=== PATIENT | female | born 1950 | race Caucasian/White ===

== ENCOUNTER → 2017-12-16 11:05 | Outpatient (CLI) | payer MEDICARE, OTHER, SELFPAY ==
[2017-12-16 12:11] LABS: Absolute Lymphocyte Count 1.93 X10^3/ul (0.83-4.51); Absolute Neutrophil Count 1.8 X10^3/uL (2.0-7.7); Basophil# 0.01 X10^3/uL; Basophil% 0.2 % (0-1); Eosinophil# 0.25 X10^3/uL; Eosinophils% 5.8 % (0-5); Hematocrit 39.7 % (37-47); Hemoglobin 13.6 g/dl (12.0-15.0); Lymphocyte # 1.93 X10^3/ul (4.0); Mean Corp Hgb Conc 34.3 g/gl (32-36); Mean Corpuscular Hgb 31.1 pg (27.0-32.0); Mean Corpuscular Volume 90.8 fL (81-99); Mean Platelet Vol. 9.8 fl (6.2-12.0); Platelet Count 194 K/mm3 (150-450); RBC Distribution Width SD 42.9 fl (35.1-43.9); Red Blood Count 4.37 M/mm3 (4.2-5.4); White Blood Count 4.3 K/mm3 (4.4-11.0)
[2017-12-16 12:12] LABS: POSITIVE COUNT NO; POSITIVE DIFFERENTIAL NO; POSITIVE MORPHOLOGY NO
[2017-12-16 12:47] LABS: ALB/GLOB Ratio 1.2 RATIO (0.9-2.4); AST(SGOT) 19 U/L (15-37); Alanine Aminotransfer ALT/SGPT 23 U/L (13-56); Albumin, Serum 4.1 g/dL (3.2-5.0); Alkaline Phosphatase 71 U/L (45-117); Anion Gap 6 (5-15); BUN 14 mg/dL (7-18); BUN/Creat Ratio 20.4 RATIO (10-20); Calcium,Total 8.9 mg/dL (8.5-10.1); Chloride 109 mmol/L (98-107); Cholesterol 197 mg/dL (200); Creatinine, Serum 0.69 mg/dL (0.55-1.02); EST Glomerular Filtration Rate 91 mL/min (>60); Est Glom Filt Rate - Afr Amer 110 mL/min (>60); Globulin 3.4 g/dL (2.2-4.2); Glucose 86 mg/dL (74-106); High Density Lipoprotein 68 mg/dL; Potassium 3.7 mmol/L (3.5-5.1); Protein, Total 7.5 g/dL (6.4-8.2); Sodium Level 142 mmol/L (136-145); Thyroid Stim Hormone (TSH) 1.57 uIU/mL (0.358-3.74); Triglycerides 83 mg/dL; Very Low Density Lipoprotein 17 mg/dL (5-40)
== END ==
PROVIDERS: Family Provider Family Medicine; PCP Family Medicine; Visit Provider Family Medicine
DX: Z00.00 Encounter for general adult medical examination without abnormal findings (principal)
CPT/HCPCS: 36415; 80053; 80061; 84443; 85025

== ENCOUNTER → 2018-08-18 07:11 | Outpatient (CLI) | payer MEDICARE, OTHER, SELFPAY ==
--- NOTE | 2018-08-18 07:19 | BI_ITS ---
MAMMOGRAPHY - BILATERAL SCREENING REASON FOR EXAM: Female, 67 years old. Routine annual screening examination. PERTINENT HISTORY: Non-contributory. TECHNIQUE: Digital bilateral breast addisno (3D mammographic acquisition) in the CC and MLO projections. 2-D mediolateral oblique (MLO) and craniocaudad (CC) views of both breasts were obtained. CAD: Full Field Digital Mammography with Computer Added Detection was performed. COMPARISON: Comparison is made with prior study dated June 08, 2017 and July 17, 2015. FINDINGS: Breast Composition: There are scattered areas of fibroglandular density. There are no dominant masses or suspicious calcifications. Stable small bilateral axillary lymph nodes. No other significant abnormalities are identified. There has been no significant change since the prior study. BI/SCREENING MAMM (CAD), BILAT IMPRESSION: Stable bilateral screening mammogram. Yearly follow-up mammogram recommended. (A) ASSESSMENT CATEGORY: BIRADS Category 2: Benign. A letter regarding these results will be sent to the patient by the facility within 30 days. Approximately 10% of breast cancers are not detected by mammography. A normal mammogram should not delay biopsy of a clinically suspicious abnormality. [id number] Electronically Signed: Anish Strickland MD at 9:21 EST Tel [phone], Service support ,
== END ==
PROVIDERS: Family Provider Family Medicine; PCP Family Medicine; Referring Provider Nurse Practitioner Women's Health; Visit Provider Nurse Practitioner Women's Health
DX: Z12.31 Encounter for screening mammogram for malignant neoplasm of breast (principal)
CPT/HCPCS: 77063; 77067

== ENCOUNTER → 2018-12-28 08:43 | Outpatient (CLI) | payer MEDICARE, OTHER, SELFPAY ==
[2018-08-22 09:22] VITALS: BMI 29.2
[2018-12-28 12:48] LABS: Absolute Lymphocyte Count 1.54 X10^3/ul (0.83-4.51); Absolute Neutrophil Count 1.5 X10^3/uL (2.0-7.7); Basophil# 0.01 X10^3/uL; Basophil% 0.3 % (0-1); Eosinophil# 0.27 X10^3/uL; Eosinophils% 7.6 % (0-5); Hematocrit 38.2 % (37-47); Hemoglobin 13.4 g/dl (12.0-15.0); Lymphocyte # 1.54 X10^3/ul (4.0); Lymphocyte % 43.5 % (19-41); Mean Corp Hgb Conc 35.1 g/gl (32-36); Mean Corpuscular Hgb 31.6 pg (27.0-32.0); Mean Corpuscular Volume 90.1 fL (81-99); Mean Platelet Vol. 10.3 fl (6.2-12.0); Monocyte# 0.23 X10^3/uL; Monocyte% 6.5 % (0-10); Neutrophil # 1.49 X10^3/uL (2.7-7.7); Neutrophil % 42.1 % (47-70); Platelet Count 209 K/mm3 (150-450); RBC Distribution Width CV 12.6 % (11.6-14.6); Red Blood Count 4.24 M/mm3 (4.2-5.4); White Blood Count 3.5 K/mm3 (4.4-11.0)
[2018-12-28 12:51] LABS: ALB/GLOB Ratio 1.5 RATIO (0.9-2.4); AST(SGOT) 20 U/L (15-37); Alanine Aminotransfer ALT/SGPT 26 U/L (13-56); Albumin, Serum 4.3 g/dL (3.2-5.0); Alkaline Phosphatase 68 U/L (45-117); Anion Gap 5 (5-15); BUN 11 mg/dL (7-18); BUN/Creat Ratio 14.4 RATIO (10-20); Calcium,Total 9.8 mg/dL (8.5-10.1); Chloride 108 mmol/L (98-107); Cholesterol 209 mg/dL (200); Creatinine, Serum 0.76 mg/dL (0.55-1.02); EST Glomerular Filtration Rate 80 mL/min (>60); Est Glom Filt Rate - Afr Amer 97 mL/min (>60); Globulin 2.9 g/dL (2.2-4.2); Glucose 92 mg/dL (74-106); High Density Lipoprotein 68 mg/dL; Protein, Total 7.2 g/dL (6.4-8.2); Sodium Level 139 mmol/L (136-145); Triglycerides 62 mg/dL; Very Low Density Lipoprotein 12 mg/dL (5-40)
[2018-12-28 13:03] LABS: POSITIVE COUNT NO; POSITIVE DIFFERENTIAL NO; POSITIVE MORPHOLOGY NO
== END ==
PROVIDERS: Family Provider Family Medicine; PCP Family Medicine; Visit Provider Family Medicine
DX: Z00.00 Encounter for general adult medical examination without abnormal findings (principal); F32.9 Major depressive disorder, single episode, unspecified; J45.909 Unspecified asthma, uncomplicated
CPT/HCPCS: 36415; 80053; 80061; 85025

== ENCOUNTER → 2019-03-29 16:01 | Outpatient (CLI) | payer MEDICARE, OTHER, SELFPAY ==
[2019-03-29 11:26] VITALS: BMI 29.2
== END ==
PROVIDERS: Family Provider Family Medicine; PCP Family Medicine; Referring Provider Nurse Practitioner Women's Health; Visit Provider Nurse Practitioner Women's Health
DX: N89.8 Other specified noninflammatory disorders of vagina (principal); Z11.3 Encounter for screening for infections with a predominantly sexual mode of transmission
CPT/HCPCS: 87070; 87077; 87106; 87205; 87491; 87591

== ENCOUNTER → 2019-04-02 11:38 | Outpatient (CLI) | payer MEDICARE, OTHER, SELFPAY ==
[2019-03-29 11:26] VITALS: BMI 29.2
[2019-04-02 14:07] LABS: Prolactin 6.5 ng/mL
== END ==
PROVIDERS: Family Provider Family Medicine; PCP Family Medicine; Referring Provider Nurse Practitioner Women's Health; Visit Provider Nurse Practitioner Women's Health
DX: N64.3 Galactorrhea not associated with childbirth (principal)
CPT/HCPCS: 36415; 84146

== ENCOUNTER → 2019-04-04 08:55 | Outpatient (CLI) | payer MEDICARE, OTHER, SELFPAY ==
[2019-03-29 10:57] VITALS: BMI 25.0
[2019-03-29 11:26] VITALS: BMI 29.2
--- NOTE | 2019-04-04 09:01 | US_ITS ---
STUDY: ULTRASOUND BREAST - LEFT REASON FOR EXAM: Female, 68 years old. Nipple discharge in the left breast. TECHNIQUE: Axial and longitudinal images of the LEFT breast were performed with a high resolution ultrasound transducer. COMPARISON: Comparison is made with prior mammogram done earlier in the day. FINDINGS: LEFT Breast: The retroareolar region of the breast was examined by ultrasound. No sonographic abnormality is seen. US/Breast Limited Unilateral IMPRESSION: No sonographic abnormality is seen. ASSESSMENT CATEGORY: BIRADS Category 1: Negative. A letter regarding these results will be sent to the patient by the facility within 30 days. Electronically Signed: Anish Strickland, at 10:44 EDT , Service support ,
--- NOTE | 2019-04-04 09:01 | BI_ITS ---
MAMMOGRAPHY - UNILATERAL DIAGNOSTIC: LEFT BREAST REASON FOR EXAM: Female, 68 years old. Inverted left nipple with left nipple discharge. PERTINENT HISTORY: Non-contributory. TECHNIQUE: Digital unilateral breast addison (3D mammographic acquisition) in the CC and MLO projections. 2-D mediolateral oblique (MLO) and craniocaudad (CC) views of both breasts were obtained. CAD: Full Field Digital Mammography with Computer Added Detection was performed. COMPARISON: Comparison is made with prior study dated August 18, 2018 and June 08, 2017. FINDINGS: Breast Composition: There are scattered areas of fibroglandular density. There are no dominant masses or suspicious calcifications. Stable appearance of the left nipple. No other significant abnormalities are identified. There has been no significant change since the prior study. BI/DIAG MAMM W/CAD, UNILAT IMPRESSION: Stable unilateral diagnostic mammogram. Correlation with ultrasound of the retroareolar region of the left breast is recommended. ASSESSMENT CATEGORY: BIRADS Category 0: Incomplete. Need additional imaging evaluation. A letter regarding these results will be sent to the patient by the facility within 30 days. Approximately 10% of breast cancers are not detected by mammography. A normal mammogram should not delay biopsy of a clinically suspicious abnormality. Electronically Signed: Anish Strickland, at 10:43 EDT , Service support ,
== END ==
PROVIDERS: Family Provider Family Medicine; PCP Family Medicine; Referring Provider Nurse Practitioner Women's Health; Visit Provider Nurse Practitioner Women's Health
DX: N64.3 Galactorrhea not associated with childbirth (principal); R92.8 Other abnormal and inconclusive findings on diagnostic imaging of breast
CPT/HCPCS: 76642; 77061; 77065; G0279

== ENCOUNTER → 2019-12-06 10:33 | Outpatient (CLI) | payer MEDICARE, OTHER, SELFPAY ==
[2019-03-29 11:26] VITALS: BMI 29.2
--- NOTE | 2019-12-06 10:35 | BI_ITS ---
MAMMOGRAPHY - BILATERAL SCREENING REASON FOR EXAM: Female, 69 years old. Routine annual screening examination. PERTINENT HISTORY: Non-contributory. TECHNIQUE: Digital bilateral breast yana (3D mammographic acquisition) in the CC and MLO projections. 2-D mediolateral oblique (MLO) and craniocaudad (CC) views of both breasts were obtained. CAD: Full Field Digital Mammography with Computer Added Detection was performed. COMPARISON: Comparison is made with prior study dated August 18, 2018 and April 04, 2019. FINDINGS: Breast Composition: There are scattered areas of fibroglandular density. There are no dominant masses or suspicious calcifications. Stable benign-appearing left axillary lymph nodes. No other significant abnormalities are identified. There has been no significant change since the prior study. BI/SCREEN MAMM (CAD) W/YANA BILAT IMPRESSION: Stable bilateral screening mammogram. Yearly follow-up mammogram recommended. (A) ASSESSMENT CATEGORY: BIRADS Category 2: Benign. A letter regarding these results will be sent to the patient by the facility within 30 days. Approximately 10% of breast cancers are not detected by mammography. A normal mammogram should not delay biopsy of a clinically suspicious abnormality. [id number] Electronically Signed: Anish Strickland, at 12:20 EDT , Service support ,
== END ==
PROVIDERS: PCP Family Medicine; Referring Provider Nurse Practitioner Women's Health; Visit Provider Nurse Practitioner Women's Health
DX: Z12.31 Encounter for screening mammogram for malignant neoplasm of breast (principal)
CPT/HCPCS: 77063; 77067

== ENCOUNTER → 2020-01-03 08:24 | Outpatient (CLI) | payer MEDICARE, OTHER, SELFPAY ==
[2019-03-29 11:26] VITALS: BMI 29.2
[2020-01-03 12:44] LABS: Absolute Lymphocyte Count 1.64 X10^3/uL (0.83-4.51); Absolute Neutrophil Count 1.2 X10^3/uL (2.0-7.7); Basophil# 0.02 X10^3/uL; Basophil% 0.6 % (0-1); Eosinophil# 0.22 X10^3/uL; Eosinophils% 6.6 % (0-5); Hematocrit 38.1 % (37-47); Hemoglobin 13.2 g/dL (12.0-15.0); Lymphocyte # 1.64 X10^3/ul (4.0); Mean Corp Hgb Conc 34.6 g/dL (32-36); Mean Corpuscular Hgb 32.2 pg (27.0-32.0); Mean Corpuscular Volume 92.9 fL (81-99); Mean Platelet Vol. 9.9 fl (6.2-12.0); Monocyte# 0.24 X10^3/uL; Monocyte% 7.2 % (0-10); NRBC Flagged by Analyzer 0 % (0-5); Neutrophil # 1.23 X10^3/uL (2.7-7.7); Neutrophil % 36.6 % (47-70); Platelet Count 199 K/mm3 (150-450); RBC Distribution Width CV 12.4 % (11.6-14.6); RBC Distribution Width SD 42.5 fl (35.1-43.9); White Blood Count 3.4 K/mm3 (4.4-11.0)
[2020-01-03 12:53] LABS: ALB/GLOB Ratio 1.4 RATIO (0.9-2.4); AST(SGOT) 27 U/L (15-37); Alanine Aminotransfer ALT/SGPT 29 U/L (13-56); Albumin, Serum 4.1 g/dL (3.2-5.0); Alkaline Phosphatase 64 U/L (45-117); Anion Gap 6 (5-15); BUN 13 mg/dL (7-18); BUN/Creat Ratio 19.8 RATIO (10-20); Calcium,Total 9.1 mg/dL (8.5-10.1); Chloride 110 mmol/L (98-107); Cholesterol 248 mg/dL (200); Creatinine, Serum 0.66 mg/dL (0.55-1.02); EST Glomerular Filtration Rate 95 mL/min (>60); Est Glom Filt Rate - Afr Amer 115 mL/min (>60); Globulin 2.9 g/dL (2.2-4.2); Glucose 88 mg/dL (74-106); High Density Lipoprotein 87 mg/dL; Potassium 3.8 mmol/L (3.5-5.1); Sodium Level 142 mmol/L (136-145); Triglycerides 57 mg/dL; Very Low Density Lipoprotein 11 mg/dL (5-40)
== END ==
PROVIDERS: PCP Family Medicine; Visit Provider Family Medicine
DX: Z00.00 Encounter for general adult medical examination without abnormal findings (principal); F32.9 Major depressive disorder, single episode, unspecified; J45.909 Unspecified asthma, uncomplicated; E78.5 Hyperlipidemia, unspecified
CPT/HCPCS: 36415; 80053; 80061; 85025

== ENCOUNTER → 2020-07-17 10:24 | Outpatient (CLI) | payer MEDICARE, OTHER, SELFPAY ==
[2020-03-12 10:01] VITALS: BMI 29.2
== END ==
PROVIDERS: PCP Family Medicine; Referring Provider Family Medicine; Visit Provider Family Medicine
DX: Z03.818 Encounter for observation for suspected exposure to other biological agents ruled out (principal); R51.9 Headache, unspecified; J02.9 Acute pharyngitis, unspecified
CPT/HCPCS: 87635; C9803; U0003

== ENCOUNTER → 2020-12-19 10:49 | Outpatient (CLI) | payer MEDICARE, OTHER, SELFPAY ==
[2020-03-12 10:01] VITALS: BMI 29.2
--- NOTE | 2020-12-19 10:52 | BI_ITS ---
MAMMOGRAPHY - BILATERAL SCREENING REASON FOR EXAM: Female, 70 years old. Routine annual screening examination. PERTINENT HISTORY: Non-contributory. History of chronic bilateral nipple inversion. TECHNIQUE: Digital bilateral breast yana (3D mammographic acquisition) in the CC and MLO projections. 2-D mediolateral oblique (MLO) and craniocaudad (CC) views of both breasts were obtained. CAD: Full Field Digital Mammography with Computer Added Detection was performed. COMPARISON: Comparison is made with prior study dated 12/06/2019 and 08/18/2018. FINDINGS: Breast Composition: There are scattered areas of fibroglandular density. There are no dominant masses or suspicious calcifications. Stable benign-appearing bilateral axillary lymph nodes. No other significant abnormalities are identified. There has been no significant change since the prior study. BI/SCRN MAMM (CAD)W/YANA BILAT IMPRESSION: Stable bilateral screening mammogram. Yearly follow-up mammogram recommended. (A) ASSESSMENT CATEGORY: BIRADS Category 2: Benign. A letter regarding these results will be sent to the patient by the facility within 30 days. Approximately 10% of breast cancers are not detected by mammography. A normal mammogram should not delay biopsy of a clinically suspicious abnormality. [id number] Electronically Signed: Anish Strickland MD at 12:20 EDT , Service support ,
== END ==
PROVIDERS: PCP Family Medicine; Referring Provider Nurse Practitioner Women's Health; Visit Provider Nurse Practitioner Women's Health
DX: Z12.31 Encounter for screening mammogram for malignant neoplasm of breast (principal)
CPT/HCPCS: 77063; 77067

== ENCOUNTER → 2021-04-07 13:54 | Outpatient (CLI) | payer MEDICARE, OTHER, SELFPAY ==
--- NOTE | 2021-04-07 13:56 | US_ITS ---
INDICATION: mass left pelvis - palpated on annual exam EXAMINATION: Ultrasound US Pelvis Non OB Complete With Transvaginal Imaging TECHNIQUE: Transabdominal and transvaginal pelvic ultrasound was performed. Grayscale, spectral waveform, and color flow Doppler evaluation of the adnexa. COMPARISON: None. FINDINGS: UTERUS: '' The uterus demonstrates unremarkable echogenicity unremarkable size shape and configuration for the patient''s age, no evidence of hypoechoic areas suggest masses. Uterus measures 6.7 x 3.9 x 2.6 cm. Cervix demonstrates unremarkable echogenicity, no evidence of cervical cysts is seen. Unremarkable endometrial stripe with no evidence of fluid or masses within the endometrial cavity, endometrial thickness measures 3.3 mm. RIGHT OVARY: The right ovary demonstrates unremarkable echogenicity and unremarkable vascularity, unremarkable size, shape and configuration, a well-circumscribed cyst is visualized within the in the right ovary measuring 2.0 x 1.3 x 1.3 cm, no evidence of internal septations is seen. The right ovary measures 2.8 x 2.5 x 1.6 cm. LEFT OVARY: The left ovary demonstrates unremarkable echogenicity and unremarkable vascularity, unremarkable size, shape and configuration with no evidence of masses, the left ovary measures 2.8 x 2.5 x 1.6 cm. FREE FLUID: None. US/Pelvic (Non ) IMPRESSION: Unremarkable uterus and left ovary. A 2 cm cyst is visualized in the left ovary that demonstrates no evidence of internal septations or soft tissue component. Electronically Signed: Christopher Pruett MD at 15:56 EDT Tel , Service support ,
--- NOTE | 2021-04-07 13:56 | US_ITS ---
INDICATION: mass left pelvis - palpated on annual exam EXAMINATION: Ultrasound US Pelvis Non OB Complete With Transvaginal Imaging TECHNIQUE: Transabdominal and transvaginal pelvic ultrasound was performed. Grayscale, spectral waveform, and color flow Doppler evaluation of the adnexa. COMPARISON: None. FINDINGS: UTERUS: '' The uterus demonstrates unremarkable echogenicity unremarkable size shape and configuration for the patient''s age, no evidence of hypoechoic areas suggest masses. Uterus measures 6.7 x 3.9 x 2.6 cm. Cervix demonstrates unremarkable echogenicity, no evidence of cervical cysts is seen. Unremarkable endometrial stripe with no evidence of fluid or masses within the endometrial cavity, endometrial thickness measures 3.3 mm. RIGHT OVARY: The right ovary demonstrates unremarkable echogenicity and unremarkable vascularity, unremarkable size, shape and configuration, a well-circumscribed cyst is visualized within the in the right ovary measuring 2.0 x 1.3 x 1.3 cm, no evidence of internal septations is seen. The right ovary measures 2.8 x 2.5 x 1.6 cm. LEFT OVARY: The left ovary demonstrates unremarkable echogenicity and unremarkable vascularity, unremarkable size, shape and configuration with no evidence of masses, the left ovary measures 2.8 x 2.5 x 1.6 cm. FREE FLUID: None. US/Transvaginal Non- IMPRESSION: Unremarkable uterus and left ovary. A 2 cm cyst is visualized in the left ovary that demonstrates no evidence of internal septations or soft tissue component. Electronically Signed: Christopher Pruett MD at 15:56 EDT Tel , Service support ,
== END ==
PROVIDERS: PCP Family Medicine; Referring Provider Nurse Practitioner Women's Health; Visit Provider Nurse Practitioner Women's Health
DX: N94.89 Other specified conditions associated with female genital organs and menstrual cycle (principal)
CPT/HCPCS: 76830; 76856

== ENCOUNTER → 2021-12-21 | Outpatient (CLI) | payer MEDICARE, OTHER, SELFPAY ==
--- NOTE | 2021-12-21 08:13 | BI_ITS ---
MAMMOGRAPHY - BILATERAL SCREENING REASON FOR EXAM: Female, 71 years old. Routine annual screening examination. PERTINENT HISTORY: Non-contributory. History of chronic bilateral nipple inversion. TECHNIQUE: Digital bilateral breast yana (3D mammographic acquisition) in the CC and MLO projections. 2-D mediolateral oblique (MLO) and craniocaudad (CC) views of both breasts were obtained. CAD: Full Field Digital Mammography with Computer Added Detection was performed. COMPARISON: Comparison is made with prior study dated 12/19/2020 and 12/06/2019. FINDINGS: Breast Composition: There are scattered areas of fibroglandular density. There are no dominant masses or suspicious calcifications. No other significant abnormalities are identified. There has been no significant change since the prior study. BI/SCRN MAMM (CAD)W/YANA BILAT IMPRESSION: Stable bilateral screening mammogram. Yearly follow-up mammogram recommended. (A) ASSESSMENT CATEGORY: BIRADS Category 1: Negative. A letter regarding these results will be sent to the patient by the facility within 30 days. Approximately 10% of breast cancers are not detected by mammography. A normal mammogram should not delay biopsy of a clinically suspicious abnormality. [id number] Electronically Signed: Anish Strickland MD at 9:00 EDT ,
== END | disposition home or self-care (01) ==
LOC: OPBI 08:11
PROVIDERS: PCP Family Medicine; Visit Provider Nurse Practitioner Women's Health
DX: Z12.31 Encounter for screening mammogram for malignant neoplasm of breast (principal)
CPT/HCPCS: 77063; 77067

== ENCOUNTER → 2022-02-19 | Outpatient (CLI) | payer MEDICARE, OTHER, SELFPAY ==
[2022-02-19 10:09] LABS: Absolute Lymphocyte Count 1.38 X10^3/uL (0.83-4.51); Absolute Neutrophil Count 2.2 X10^3/uL (2.0-7.7); Basophil# 0.02 X10^3/uL; Basophil% 0.5 % (0-1); Eosinophil# 0.11 X10^3/uL; Eosinophils% 2.7 % (0-5); Hematocrit 37.8 % (37-47); Hemoglobin 12.8 g/dL (12.0-15.0); Lymphocyte # 1.38 X10^3/ul (0.83-4.51); Lymphocyte % 34.2 % (19-41); Mean Corp Hgb Conc 33.9 g/dL (32-36); Mean Corpuscular Hgb 31.6 pg (27.0-32.0); Mean Corpuscular Volume 93.3 fL (81-99); Mean Platelet Vol. 9.4 fl (6.2-12.0); Monocyte# 0.29 X10^3/uL; Monocyte% 7.2 % (0-10); NRBC Flagged by Analyzer 0 % (0-5); Neutrophil # 2.23 X10^3/uL (2.7-7.7); Neutrophil % 55.2 % (47-70); Platelet Count 265 K/mm3 (150-450); RBC Distribution Width CV 12.1 % (11.6-14.6); RBC Distribution Width SD 41.7 fl (35.1-43.9); Red Blood Count 4.05 M/mm3 (4.2-5.4)
[2022-02-19 10:37] LABS: ALB/GLOB Ratio 1.3 RATIO (0.9-2.4); AST(SGOT) 26 U/L (15-37); Alanine Aminotransfer ALT/SGPT 28 U/L (13-56); Albumin, Serum 3.8 g/dL (3.2-5.0); Alkaline Phosphatase 63 U/L (45-117); Anion Gap 5 (5-15); BUN 12 mg/dL (7-18); BUN/Creat Ratio 16.5 RATIO (10-20); Chloride 108 mmol/L (98-107); Cholesterol 198 mg/dL (200); Creatinine, Serum 0.73 mg/dL (0.55-1.02); EST Glomerular Filtration Rate 83 mL/min (>60); Est Glom Filt Rate - Afr Amer 101 mL/min (>60); Glucose 90 mg/dL (74-106); High Density Lipoprotein 67 mg/dL; Protein, Total 6.8 g/dL (6.4-8.2); Sodium Level 142 mmol/L (136-145); Thyroid Stim Hormone (TSH) 1.26 uIU/mL (0.358-3.74); Triglycerides 64 mg/dL; Very Low Density Lipoprotein 13 mg/dL (5-40)
== END | disposition home or self-care (01) ==
LOC: MTLAB 09:12
PROVIDERS: PCP Family Medicine; Referring Provider Family Medicine; Visit Provider Family Medicine
DX: Z00.00 Encounter for general adult medical examination without abnormal findings (principal); F32.9 Major depressive disorder, single episode, unspecified; R53.83 Other fatigue; E78.5 Hyperlipidemia, unspecified
CPT/HCPCS: 36415; 80053; 80061; 84443; 85025

== ENCOUNTER → 2022-04-08 | Outpatient (CLI) | payer MEDICARE, OTHER, SELFPAY ==
--- NOTE | 2022-04-08 08:21 | BD_ITS ---
STUDY: DUAL ENERGY X-RAY ABSORPTIOMETRY / DXA REASON FOR EXAM: Female, 71 years old. Screening TECHNIQUE: Bone Mineral Density (BMD) measurements of lumbar spine and bilateral hips were obtained. COMPARISON: Comparison is made with prior study dated 06/08/2017. FINDINGS: Lumbar Spine (L1-L4): g/cm2 (1.092) / T-score (0.5) / Z-score (2.7) Findings are suggestive of normal bone density with a low fracture risk. Left Femur Total: g/cm2 (0.793) / T-score (-1.2) / Z-score (0.4) Left Femoral Neck: g/cm2 (0.683) / T-score (-1.5) / Z-score (0.4) Right Femur Total: g/cm2 (0.860) / T-score (-0.7) / Z-score (1.0) Right Femoral Neck: g/cm2 (0.760) / T-score (-0.8) / Z-score (1.1) The T-Scores on the most recent prior examination were: Lumbar Spine (L1-L4): There has been worsening of bone density since the previous examination. Left Femur Total: which represents a worsening of 3.4%. Right Femur Total: which represents a worsening of 1.9%. BD/Dexa Bone Density Study IMPRESSION: The patient is considered osteopenic as outlined below according to World Chavez Organization (WHO) criteria with a low fracture risk. There has been worsening of bone density since the previous examination. Reference Information: The T-score is the number of standard deviations above or below the standard which is normal for young adults at their peak bone mineral density. The World Health Organization (WHO) interprets the T-scores as follows: Above -1 Normal bone density Between -1 and -2.5 Osteopenia Equal to / or below -2.5 Osteoporosis As a practical clinical guideline, osteopenia may be graded as follows: Mild -1 through -1.5 Moderate -1.6 through -2.0 Severe -2.1 through -2.4 The Z-score is the number of standard deviations above or below age-matched controls. A Z-score of less than -1.5 would be considered abnormal. References: 1. NIH Osteoporosis and Related Bone Diseases www osteo.org 2. International Society for Clinical Densitometry www iscd.org 3. National Osteoporosis Foundation www nof.org Electronically Signed: Anish Strickland MD at 11:15 EDT ,
== END | disposition home or self-care (01) ==
LOC: OPBD 08:09
PROVIDERS: PCP Family Medicine; Visit Provider Nurse Practitioner Women's Health
DX: Z13.820 Encounter for screening for osteoporosis (principal); Z78.0 Asymptomatic menopausal state
CPT/HCPCS: 77080

== ENCOUNTER → 2022-12-22 | Outpatient (CLI) | payer MEDICARE, OTHER, SELFPAY ==
--- NOTE | 2022-12-22 08:09 | BI_ITS ---
MAMMOGRAPHY - BILATERAL SCREENING REASON FOR EXAM: Female, 72 years old. Routine annual screening examination. PERTINENT HISTORY: Non-contributory. Chronic bilateral nipple inversion. TECHNIQUE: Digital bilateral breast yana (3D mammographic acquisition) in the CC and MLO projections. 2-D mediolateral oblique (MLO) and craniocaudad (CC) views of both breasts were obtained. CAD: Full Field Digital Mammography with Computer Added Detection was performed. COMPARISON: Comparison is made with prior study December 21, 2021 and December 19, 2020. FINDINGS: Breast Composition: There are scattered areas of fibroglandular density. There are no dominant masses or suspicious calcifications. No other significant abnormalities are identified. There has been no significant change since the prior study. BI/SCRN MAMM (CAD)W/YANA BILAT IMPRESSION: Stable bilateral screening mammogram. Yearly follow-up mammogram recommended. (A) ASSESSMENT CATEGORY: BIRADS Category 1: Negative. A letter regarding these results will be sent to the patient by the facility within 30 days. Approximately 10% of breast cancers are not detected by mammography. A normal mammogram should not delay biopsy of a clinically suspicious abnormality. [id number] Electronically Signed: Anish Strickland MD at 10:03 EDT ,
== END | disposition home or self-care (01) ==
LOC: OPBI 08:05
PROVIDERS: PCP Family Medicine; Referring Provider Nurse Practitioner Women's Health; Visit Provider Nurse Practitioner Women's Health
DX: Z12.31 Encounter for screening mammogram for malignant neoplasm of breast (principal)
CPT/HCPCS: 77063; 77067

== ENCOUNTER → 2023-02-21 | Outpatient (CLI) | payer MEDICARE, OTHER, SELFPAY ==
[2023-02-21 12:08] LABS: Absolute Lymphocyte Count 1.62 X10^3/uL (0.83-4.51); Absolute Neutrophil Count 2.3 X10^3/uL (2.0-7.7); Basophil# 0.03 X10^3/uL; Basophil% 0.7 % (0-1); Eosinophil# 0.23 X10^3/uL; Eosinophils% 5.2 % (0-5); Hematocrit 41.9 % (37-47); Hemoglobin 14.3 g/dL (12.0-15.0); Lymphocyte # 1.62 X10^3/ul (0.83-4.51); Lymphocyte % 36.7 % (19-41); Mean Corp Hgb Conc 34.1 g/dL (32-36); Mean Corpuscular Hgb 32.1 pg (27.0-32.0); Mean Corpuscular Volume 93.9 fL (81-99); Mean Platelet Vol. 10.1 fl (6.2-12.0); Monocyte# 0.24 X10^3/uL; Monocyte% 5.4 % (0-10); NRBC Flagged by Analyzer 0 % (0-5); Neutrophil # 2.28 X10^3/uL (2.7-7.7); Neutrophil % 51.8 % (47-70); Platelet Count 205 K/mm3 (150-450); RBC Distribution Width CV 12.1 % (11.6-14.6); RBC Distribution Width SD 42.5 fl (35.1-43.9); Red Blood Count 4.46 M/mm3 (4.2-5.4); White Blood Count 4.4 K/mm3 (4.4-11.0)
[2023-02-21 12:34] LABS: ALB/GLOB Ratio 1.2 RATIO (0.9-2.4); AST(SGOT) 25 U/L (15-37); Alanine Aminotransfer ALT/SGPT 24 U/L (13-56); Albumin, Serum 4.1 g/dL (3.2-5.0); Alkaline Phosphatase 65 U/L (45-117); Anion Gap 7 (5-15); BUN 14 mg/dL (7-18); BUN/Creat Ratio 17.7 RATIO (10-20); Calcium,Total 9.5 mg/dL (8.5-10.1); Chloride 106 mmol/L (98-107); Cholesterol 240 mg/dL (200); Creatinine, Serum 0.79 mg/dL (0.55-1.02); EST Glomerular Filtration Rate 76 mL/min (>60); Est Glom Filt Rate - Afr Amer 92 mL/min (>60); Globulin 3.4 g/dL (2.2-4.2); Glucose 95 mg/dL (74-106); High Density Lipoprotein 81 mg/dL; Potassium 3.9 mmol/L (3.5-5.1); Protein, Total 7.5 g/dL (6.4-8.2); Sodium Level 138 mmol/L (136-145); Thyroid Stim Hormone (TSH) 1.98 uIU/mL (0.358-3.74); Triglycerides 84 mg/dL; Very Low Density Lipoprotein 17 mg/dL (5-40)
== END | disposition home or self-care (01) ==
LOC: MTLAB 09:27
PROVIDERS: PCP Family Medicine; Referring Provider Family Medicine; Visit Provider Family Medicine
DX: Z00.00 Encounter for general adult medical examination without abnormal findings (principal); F32.9 Major depressive disorder, single episode, unspecified; R53.83 Other fatigue; E78.5 Hyperlipidemia, unspecified
CPT/HCPCS: 36415; 80053; 80061; 84443; 85025

== ENCOUNTER → 2023-12-26 | Outpatient (CLI) | payer MEDICARE, OTHER, SELFPAY ==
--- NOTE | 2023-12-26 08:18 | BI_ITS ---
MAMMOGRAPHY - BILATERAL SCREENING 3-D TOMOSYNTHESIS REASON FOR EXAM: Female, 73 years old. Screening for breast cancer PERTINENT HISTORY: No significant family history. TECHNIQUE: 2-D mammograms and 3-D Tomosynthesis of the breast (s) were performed. CAD was performed. COMPARISON: 12/22/2022 FINDINGS: The breast composition is composed of scattered fibroglandular density. Scattered benign calcifications are seen. No dense spiculated masses or suspicious microcalcifications are identified. No architectural distortion is identified. There is no skin thickening or retraction. There has been no significant change since the prior study. BI/SCRN MAMM (CAD)W/YANA BILAT IMPRESSION: No mammographic signs of malignancy. Routine yearly mammograms recommended. ASSESSMENT CATEGORY: BIRADS Category 1: Negative. A letter regarding these results will be sent to the patient by the facility within 30 days. FOLLOW UP RECOMMENDATION: Yearly follow up mammogram recommended. (A) Approximately 10% of breast cancers are not detected by mammography. A normal mammogram should not delay biopsy of a clinically suspicious abnormality. Electronically Signed: Paolo Huggins MD at 14:11 EDT ,
== END | disposition home or self-care (01) ==
LOC: OPBI 08:18
PROVIDERS: PCP Family Medicine; Referring Provider Nurse Practitioner Women's Health; Visit Provider Nurse Practitioner Women's Health
DX: Z12.31 Encounter for screening mammogram for malignant neoplasm of breast (principal)
CPT/HCPCS: 77063; 77067

== ENCOUNTER → 2024-02-22 | Outpatient (CLI) | payer MEDICARE, OTHER, SELFPAY ==
[2024-02-22 12:32] LABS: Absolute Lymphocyte Count 1.75 X10^3/uL (0.83-4.51); Absolute Neutrophil Count 1.8 X10^3/uL (2.0-7.7); Basophil# 0.03 X10^3/uL; Basophil% 0.7 % (0-1); Eosinophil# 0.22 X10^3/uL; Eosinophils% 5.4 % (0-5); Hematocrit 40.3 % (37-47); Hemoglobin 13.7 g/dL (12.0-15.0); Lymphocyte # 1.75 X10^3/ul (0.83-4.51); Lymphocyte % 43.3 % (19-41); Mean Corpuscular Hgb 31.2 pg (27.0-32.0); Mean Corpuscular Volume 91.8 fL (81-99); Mean Platelet Vol. 9.7 fl (6.2-12.0); Monocyte# 0.27 X10^3/uL; Monocyte% 6.7 % (0-10); NRBC Flagged by Analyzer 0 % (0-5); Neutrophil # 1.77 X10^3/uL (2.7-7.7); Neutrophil % 43.9 % (47-70); Platelet Count 208 K/mm3 (150-450); RBC Distribution Width CV 12.5 % (11.6-14.6); RBC Distribution Width SD 42.1 fl (35.1-43.9); Red Blood Count 4.39 M/mm3 (4.2-5.4)
[2024-02-22 12:49] LABS: ALB/GLOB Ratio 1.2 RATIO (0.9-2.4); AST(SGOT) 24 U/L (15-37); Alanine Aminotransfer ALT/SGPT 28 U/L (13-56); Albumin, Serum 3.7 g/dL (3.2-5.0); Alkaline Phosphatase 66 U/L (45-117); Anion Gap 6 (5-15); BUN 16 mg/dL (7-18); BUN/Creat Ratio 20.2 RATIO (10-20); Calcium,Total 9.2 mg/dL (8.5-10.1); Chloride 108 mmol/L (98-107); Cholesterol 223 mg/dL (200); Creatinine, Serum 0.79 mg/dL (0.55-1.02); EST Glomerular Filtration Rate 75 mL/min (>60); Est Glom Filt Rate - Afr Amer 91 mL/min (>60); Globulin 3.2 g/dL (2.2-4.2); Glucose 101 mg/dL (74-106); High Density Lipoprotein 79 mg/dL; Protein, Total 6.9 g/dL (6.4-8.2); Sodium Level 141 mmol/L (136-145); Thyroid Stim Hormone (TSH) 1.83 uIU/mL (0.358-3.74); Triglycerides 89 mg/dL; Very Low Density Lipoprotein 18 mg/dL (5-40)
== END | disposition home or self-care (01) ==
LOC: BFHLAB 09:17
PROVIDERS: PCP Family Medicine; Referring Provider Family Medicine; Visit Provider Family Medicine
DX: Z00.00 Encounter for general adult medical examination without abnormal findings (principal); F32.9 Major depressive disorder, single episode, unspecified; R53.83 Other fatigue; E78.5 Hyperlipidemia, unspecified
CPT/HCPCS: 36415; 80053; 80061; 84443; 85025

== ENCOUNTER → 2024-06-01 | Outpatient (CLI) | payer MEDICARE, OTHER, SELFPAY ==
--- NOTE | 2024-06-01 09:11 | BD_ITS ---
STUDY: DUAL ENERGY X-RAY ABSORPTIOMETRY / DXA REASON FOR EXAM: Female, 73 years old. Screening for osteoporosis TECHNIQUE: Bone Mineral Density (BMD) measurements of lumbar spine and bilateral hips were obtained. COMPARISON: Comparison is made with prior study to April 08, 2022. FINDINGS: Lumbar Spine (L1-L4): g/cm2 (1.221) / T-score (1.6) / Z-score (4.0) Findings are suggestive of normal bone density with a low fracture risk. Left Femur Total: g/cm2 (0.800) / T-score (-1.2) / Z-score (0.6) Left Femoral Neck: g/cm2 (0.655) / T-score (-1.7) / Z-score (0.3) Right Femur Total: g/cm2 (0.833) / T-score (-0.9) / Z-score (0.9) Right Femoral Neck: g/cm2 (0.732) / T-score (-1.1) / Z-score (1.0) The T-Scores on the most recent prior examination were: Lumbar Spine (L1-L4): There has been worsening of bone density since the previous examination. Left Femur Total: which represents an improvement of 0.8%. Right Femur Total: which represents a worsening of 3.1%. BD/Dexa Bone Density Study IMPRESSION: The patient is considered osteopenic as outlined below according to World Chavez Organization (WHO) criteria with a moderate fracture risk. There has been worsening of bone density since the previous examination. Reference Information: The T-score is the number of standard deviations above or below the standard which is normal for young adults at their peak bone mineral density. The World Health Organization (WHO) interprets the T-scores as follows: Above -1 Normal bone density Between -1 and -2.5 Osteopenia Equal to / or below -2.5 Osteoporosis As a practical clinical guideline, osteopenia may be graded as follows: Mild -1 through -1.5 Moderate -1.6 through -2.0 Severe -2.1 through -2.4 The Z-score is the number of standard deviations above or below age-matched controls. A Z-score of less than -1.5 would be considered abnormal. References: 1. NIH Osteoporosis and Related Bone Diseases www osteo.org 2. International Society for Clinical Densitometry www iscd.org 3. National Osteoporosis Foundation www nof.org Electronically Signed: Anish Strickland MD at 9:49 EDT ,
--- OUTSIDE RECORDS SUMMARY | 2024-06-01 09:38 | XMS RPT_ITS | CCD ---
Author Organization [facility] Care Team Providers Care Controller Operations And Hr Manager Name Role Phone Isabel Preston NP Unavailable [phone] IASBEL PRESTON (SENIOR CLIENT ADVISOR) Unavailable Unavailable TINY Hickman RN, Jade Campoverde Unavailable Unavailabl e Medications Completed/Discontinued Medications Medication Drug Class(es) Dates Sig (Normalized) Sig (Original) Drug Treatment Unknown - unknown (4 sources) No information available. Problems Active Problems Problem Classification Problem Date Documented Da te Episodic/Chronic Unclassified (2 sources) Specialized medical examination ; Translations: [Encounter for screening, unspecified] Onset: 04-13-2017 04-13-2017 Unclassified (1 source) Screening mammography ; Translations: [Encounter for screening mammogram for malignant neoplasm of breast] Onset: 05-31-2017 05-31-2017 Unclassified (1 source) Unknown / UNK(Unknown) Onset: 01-25-2017 Past or Other Problems Problem Classification Problem Date Documented Da te Episodic/Chronic Malaise and fatigue (4 sources) Fatigue; Translations: [Other fatigue] Onset: 04-13-2017 04-13-2017 Episodic Residual codes; unclassified (2 sources) Asymptomatic menopausal state; Translations: [Asymptomatic menopausal state] Onset: 06-02-2017 06-02-2017 Episodic Results Test Name Value Interpretation Reference Range Facil ity Lab Report: CBC W/Diff, Auto matedon 06-08-2017 Absolute Neut 1.9 X10 3/UL Low 2.0-7.7 [facility] Basophils/100 WBC Auto (Bld) 0.4 % Invalid Interpretation Code 0-1 [facility] Eosinophils/100 leukocytes 5.2 % High 0-5 [facility] Erythrocyte distribution width Auto Ratio (RBC) 12.7 % Invalid Interpretation Code 11.6-14.6 [facility] Erythrocytes (RBC) 4.46 10*6/uL Invalid Interpretation Code 4.2-5.4 [facility] Hematocrit (HCT) 40.6 % Invalid Interpretation Code 37-47 [facility] Hemoglobin mass conc (Bld) 14.2 g/dL Invalid Interpretation Code 12.0-15.0 [facility] Immature granulocytes/100 WBC (Bld) 0.000 % Invalid Interpretation Code 0.0-0.9 [facility] Lymphocytes 2.31 X10 3/UL Invalid Interpretation Code 0.83-4.51 [facility] Lymphocytes/100 leukocytes 48.4 % High 19-41 [facility] MCH 31.8 pg Invalid Interpretation Code 27.0-32.0 [facility] MCHC mass conc (RBC) 35.0 G/GL Invalid Interpretation Code 32-36 [facility] MCV 91.0 fL Invalid Interpretation Code 81-99 [facility] Monocytes/100 leukocytes 5.7 % Invalid Interpretation Code 0-10 [facility] Neutrophils/100 WBC Auto (Bld) 40.3 % Low 47-70 [facility] Platelets 223 10*3/mm3 Invalid Interpretation Code 150-450 [facility] PMV by Martin 10.2 fL Invalid Interpretation Code 6.2-12.0 [facility] RDW SD 41.8 fL Invalid Interpretation Code 35.1-43.9 [facility] WBC (Leukocytes) 4.8 10*3/uL Invalid Interpretation Code 4.4-11.0 [facility] Lab Report: Glucoseon 2016 Glucose mass conc 92 mg/dL Invalid Interpretation Code 70-110 [facility] Lab Report: Lipid Profileon 06-08-2017 Cholesterol 252 mg/dL High 200 [facility] HDL Cholesterol 73 mg/dL Invalid Interpretation Code [facility] LDL Cholesterol 164 mg/dL High 0-130 [facility] Triglyceride 77 mg/dL Invalid Interpretation Code [facility] very low density lipoproteins 15 mg/dL Invalid Interpretation Code 5-40 [facility] Lab Report: Thyroid Stim Hor noris (TSH)on 06-08-2017 Thyroid stimulating hormone (TSH) 1.62 u[iU]/mL Invalid Interpretation Code 0.358-3.74 [facility] Encounters Encounter Date Encounter Type Care Provider Facility Start: 01-25-2017 End: 01-26-2017 Ambulatory ISABEL (AXEL) MOHAN [facility] Procedures Date Procedure Procedure Detail Performing Clinician Start: 05-31-2017 Screening mammography Mammogra m yearly screening Isabel Preston SENIOR CLIENT ADVISOR Start: 04-13-2017 End: 06-08-2017 *CBC with Differential Isabel Preston SENIOR CLIENT ADVISOR Work Phone: Start: 04-13-2017 End: 06-08-2017 Glucose [Mass/volume] in Serum or Plasma Isabel Preston SENIOR CLIENT ADVISOR Work Phone: Start: 04-13-2017 End: 06-08-2017 Lipid 1996 panel - Serum or Plasma Isabel Preston SENIOR CLIENT ADVISOR Work Phone: Start: 04-13-2017 Specialized medical examination Health screening Isabel Preston SENIOR CLIENT ADVISOR Start: 04-13-2017 End: 06-08-2017 Thyrotropin [Units/volume] in Serum or Plasma Isabel Preston SENIOR CLIENT ADVISOR Work Phone: Plan of Treatment Date Care Activity Detail Author Start: 06-02-2017 End: 06-02-2017 Dxa bone density study 1/> sites axial skel Dual-energy X-ray absorptiometry (DXA), bone density study, 1 or more sites; [facility] Work Phone: Start: 05-31-2017 End: 05-31-2017 Mammogram, screening Mammogram, Screening, both breasts [facility] Start: 04-13-2017 End: 06-08-2017 *CBC with Differential *CBC with Differential [facility] Start: 04-13-2017 End: 06-08-2017 Glucose mass conc *Glucose, Fasting [facility] Start: 04-13-2017 End: 06-08-2017 Lipid panel [AGGREGATE] *Lipid Profile [facility] Start: 04-13-2017 End: 06-08-2017 Thyroid stimulating hormone (TSH) *TSH [facility] Start: 04-13-2017 End: 04-13-2017 *CBC with Differential *CBC with Differential [facility] Start: 04-13-2017 End: 04-13-2017 Glucose *Glucose, Fasting [facility] Start: 04-13-2017 End: 04-13-2017 Lipid panel [AGGREGATE] *Lipid Profile [facility] Start: 04-13-2017 End: 04-13-2017 Thyroid stimulating hormone (TSH) *TSH [facility] Summary Purpose Family History No Family History Records Found Advance Directives No Advanced Directives Records Found Additional Source Comments INFORMATION SOURCE (unrecogn ized section and content) DATE CREATED AUTHOR 02/01/2018 [facility] FOR RECORDS PERTAINING TO PATIENTS WHO ARE OR HAVE BEEN ENROLLED IN A CHEMICAL DEPENDENCY/SUBSTANCEABUSE PROGRAM, SOME INFORMATION MAY BE OMITTED. This clinical summary was aggregated from multiple sources. Caution should be exercised in using it in the provision of clinical care. This summary normalizes information from multiple sources, and as a consequence, information in this document may materially change the coding, format and clinical context of patient data. In addition, data may be omitted in some cases. CLINICAL DECISIONS SHOULD BE BASED ON THE PRIMARY CLINICAL RECORDS. [employer] provides no warranty or guarantee of the accuracy or completeness of information in this document.
== END | disposition home or self-care (01) ==
LOC: OPBD 09:11
PROVIDERS: PCP Family Medicine; Referring Provider Nurse Practitioner Women's Health; Visit Provider Nurse Practitioner Women's Health
DX: M81.0 Age-related osteoporosis without current pathological fracture (principal)
CPT/HCPCS: 77080

== ENCOUNTER → 2025-01-10 | Outpatient (CLI) | payer MEDICARE, OTHER, SELFPAY ==
--- OUTSIDE RECORDS SUMMARY | 2025-01-10 07:45 | XMS RPT_ITS | CCD ---
Author Organization [facility] Care Team Providers Care [employer] Furnace Laborer Name Role Phone Latesha Preston NP S Unavailable LATESHA PRESTON (TRUST VAULT CLERK) Unavailable Unavailable TINY Hickman RN, Jade Campoverde Unavailable Unavailcarolina e Dr. Lizzeth Resendez Primary Care Provider Dr. Lizzeth Resendez Referring Provider Mohan REYNA, FAUSTINA Hall Attending Provider [phone] Dr. Lizzeth Resendez MD Primary Care Provider Dr. Lizzeth Resendez MD Referring Provider Perfecto Gillette Attending Provider Latesha Preston NP Referring Unavailable Latesha Preston NP Attending Unavailable Lizzeth Resendez Primary Care Unavailable Lizzeth Resendez Referring Unavailable Lizzeth Resendez Attending Unavailable Lizzeth Resendez Primary Care Unavailable Lizzeth Resendez Primary Care Unavailable Latesha Preston NP Attending Unavailable Latesha Preston NP Referring Unavailable Lizzeth Resendez Referring Unavailable Mohan TRUST VAULT CLERKLatesha Attending Unavailable Lizzeth Resendez Primary Care Unavailable Lizzeth Resendez Primary Care Unavailable Huang Resendeznah Referring Unavailable Perfecto Gillette Attending Unavailable Medications Current Medications Medication Drug Class(es) Dates Sig (Normalized) Sig (Original) Albuterol Sulfate (5 sources) beta2-Adrenergic Agonist Start: 02-03-2015 Albuterol Sulfate Active 2 PUFF INHALATION EVERY 4 HOURS NEEDED 1 February 03, 2015 11:28pm 2puffs every 2-4 hours for the next 3 days then as needed every 2-4 hours. Start: 02-03-2015 Albuterol Sulf ate 1 INHALER inhaler Active 2 NMA INHALATION EVERY 4 HOURS NEEDED February 03, 2015 12:00am 2puffs every 2-4 hours for the next 3 days then as needed every 2-4 hours. Start: 02-03-2015 Albuterol Sulf ate Active 2 PUFF INHALATION EVERY 4 HOURS NEEDED February 03, 2015 12:00am 2puffs every 2-4 hours for the next 3 days then as needed every 2-4 hours. amoxicillin 875 mg / clavulanate 125 mg oral tablet (1 source) Penicillin-class Antibacterial Start: 01-01-2025 Amoxicillin-Pot Clavulanate 875-125 mg tablet Active 1 {tbl} PO TWICE A DAY January 01, 2025 12:00am calcium carbonate 1500 mg oral tablet (5 sources) Start: 08-22-2018 take 1 tablet by mouth twice daily Calcium Carbonate (Calcium 600) 600 mg calcium (1,500 mg) tablet Active 600 mg PO TWICE A DAY August 22, 2018 1:00am cholecalciferol 0.05 mg oral capsule (5 sources) Vitamin D Start: 08-22-2018 take 1 capsule by mouth once daily Cholecalciferol (Vitamin D3) 2,000 unit capsule Active 2000 U PO DAILY August 22, 2018 1:00am escitalopram 20 mg oral tablet (7 sources) Serotonin Reuptake Inhibitor Start: 05-25-2023 End: 04-10-2024 take 1 tablet by mouth once daily Escitalopram Oxalate (Lexapro) 20 mg tablet Active 20 mg PO DAILY April 10, 2024 9:12am Start: 08-22-2018 End: 05-25-2023 take 1 tablet by mouth once daily Escitalopram Oxalate (Lexapro) 10 mg tablet Discontinued 10 mg PO DAILY August 22, 2018 1:00am May 25, 2023 12:06pm methylPREDNISolone 4 mg oral tablet (1 source) Corticosteroid Start: 01-01-2025 take 1 tablet by mouth once Methylprednisolone (Medrol (Tejinder)) 4 mg tablets,dose pack Active 0 PO per package directions January 01, 2025 12:00am PO PER PKG DIR Multivitamin preparation (4 sources) Start: 03-12-2020 take 1 tablet by mouth once daily Multivitamin Active 1 TABLET PO DAILY March 12, 2020 9:50am Start: 03-12-2020 take 1 tablet by kiel th once daily Multivitamin Active 1 TABLET PO DAILY March 12, 2020 12:00am Multivitamin tablet (1 source) Start: 03-12-2020 Multivitamin tablet Active 1 {tbl} PO DAILY March 12, 2020 12:00am tobramycin 3 mg/ml ophthalmic solution (1 source) Aminoglycoside Antibacterial Start: 01-01-2025 Tobramycin 0.3 % drops Active 1 NMA OPHTHALMIC Q2H January 01, 2025 12:00am to affected eye while awake first 24 hours, then 3x/day on days 2-5 zinc sulfate 66 mg oral tablet (3 sources) Start: 04-05-2022 take 1 tablet by mouth once daily Zinc Sulfate (Zinc-15) 66 mg tablet Active 66 mg PO DAILY April 05, 2022 12:00am Completed/Discontinued Medications Medication Drug Class(es) Dates Sig (Normalized) Sig (Original) Drug Treatment Unknown - unknown (4 sources) No information available. predniSONE 20 mg oral tablet (5 sources) Start: 02-03-2015 End: 08-22-2018 take 2 tablets by mouth once daily Prednisone 20 MG tablet Discontinued 40 mg PO DAILY February 03, 2015 12:00am August 22, 2018 10:13am Start: 02-03-2015 End: 08-22-2018 take 40 mg by mouth once daily Prednisone Discontinued 40 MG PO DAILY February 03, 2015 12:00am August 22, 2018 10:13am Problems Active Problems Problem Classification Problem Date Documented Da te Episodic/Chronic E Codes: Fall (1 source) Fall; Translations: [Unspecified fall, initial encounter] 09-07-2022 Episodic Fracture of upper limb (2 sources) Fracture of phalanx of thumb; Translations: [Fracture of unspecified phalanx of right thumb, initial encounter for closed fracture] 09-07-2022 Episodic Mood disorders (1 source) Depressive disorder; Translations: [Depression] 04-10-2024 Chronic Comment on above: stable lexapro Mood disorders (1 source) Mood disorders; Translations: [Depression, unspecified] Onset: 04-10-2024 Osteoporosis (1 source) Age-related osteoporosis without current pathological fracture; Translations: [Age-related osteoporosis without current pathological fracture] Onset: 06-25-2024 Chronic Other bone disease and musculoskeletal deformities (1 source) Osteopenia; Translations: [Other specified disorders of bone density and structure, unspecified site] 04-10-2024 Episodic Other female genital disorders (2 sources) Mass of uterine adnexa; Translations: [Other specified conditions associated with female genital organs and menstrual cycle] Episodic Other screening for suspected conditions (not mental disorders or infectious disease) (2 sources) Encounter for screening mammogram for malignant neoplasm of breast; Translations: [Encounter for other screening for malignant neoplasm of breast] Onset: 04-10-2024 Episodic Other upper respiratory infections (3 sources) Acute upper respiratory infection; Translations: [Acute upper respiratory infection, unspecified] 09-01-2022 Episodic Sprains and strains (2 sources) Injury of right hand; Translations: [Strain of unspecified muscle, fascia and tendon at wrist and hand level, right hand, initial encounter] 09-07-2022 Episodic Unclassified (2 sources) Specialized medical examination ; [...] Results Test Name Value Interpretation Reference Range Facility Urgent Care Visit Reporton 0 01-01-2025 Urgent Care Visit Report [facility] [address], [address] [place] [address] OFFICE VISIT Date of Service: 01/01/25 MR#: [id number] Acct: [id number] Name: ROBERT REY Rep #: [id number] : 1950 Provider: ALEJANDRA Heath Age/Sex: 74/F Location: [facility] Status: Signed Intake Vital Signs 04/10/24 09:10 01/01/25 11:32 Height 5 ft 6 in 5 ft 6 in Weight: 173 lb 4 oz BMI 27.9 BP 132/80 H Blood Pressure Location Lt brachial Position Sitting Respiration 15 Pulse 71 Pulse Source NIBP Temp 98.4 F Temp Source Oral Pulse Oximetry (%) 96 Oxygen Delivery Method room air Intake Visit Reasons: SINUS COMPLAINT Chief Complaint: cough, congest, wheeze, OSEGUERA Licensed Architect Required: No Is patient in pain?: No Allergies No Known Allergies Allergy (Verified 01/01/25 11:38) Medications ???Medication ???Instructions ???Recorded ???Confirmed ???Type albuterol sulfate 90 mcg/actuation 2 puff inhalation Q4H PRN ##1 01/01/25 Rx aerosol inhaler calcium carbonate (Calcium 600) 600 mg PO BID 08/22/18 01/01/25 Hi story cholecalciferol (vitamin D3) 50 2,000 unit PO DAILY 08/22/1801/01 History mcg (2,000 unit) capsule multivitamin 1 tab PO DAILY 03/12/20 01/01/25 H istory zinc sulfate 66 mg tablet (Zinc-15) 66 mg PO DAILY 04/05/22 5 History escitalopram oxalate 20 mg tablet 20 mg PO DAILY #90 tabs 04/10/24 01/01/25 Rx (Lexapro) amoxicillin 875 mg-potassium 1 tab PO BID #20 tabs 01/01/25 Rx clavulanate 125 mg tablet methylprednisolone 4 mg tablets in See Rx Instructions PO PER PKG D IR 01/01/25 01/01/25 Rx a dose pack (Medrol (Tejinder)) #21 tabs tobramycin 0.3 % eye drops 1 drp ophthalmic (eye) Q2H #5 mL 0 01/01/25 01/01/25 Rx Is last menstrual period known: No Post menopausal: Yes Patient : No Have you fallen in the past year?: No Nurse's Note: cough, congest, wheeze, OSEGUERA x 1 week. denies fever. PFSH Surgical History (Updated 01/01/25 @ 11:32 by Yaneth Ernst) History of tonsillectomy and adenoidectomy H/O tubal ligation Family History Mother Renal cancer Acute leukemia Father Diabetes Social History Smoking Status: Never smoker alcohol intake: current details: occasionally substance use type: does not use caffeine: Yes frequency: 1-2 times per week seatbelt use: always do you feel safe at home: Yes additional social history: HPI HPI Chief Complaint: cough, congest, wheeze, OSEGUERA Details: ROBERT REY, is a 74 F who presents to the office today for [facility] evaluation at [facility] for approximately 1-week history of progressively worsening facial pressure/congestion with purulent postnasal drip/cough and wheezing. She also appreciates right eye conjunctival injection with exudate this morning upon awakening. No complaints of fever, chills, myalgias, fatigue, runny nose, or nausea/vomiting/philly rrhea. No complaints of chest pain/shortness of breath/dyspnea on exertion. No vision changes or deep eye globe pain. No close contacts with similar complaints. No other associated symptoms and no other alleviating/aggrava ting factors. ROS Const Constitutional: No other (as above) Exam Const General: cooperative, healthy appearing and no acute distress Nutritional Appearance: average body habitus Orientation: alert, awake and oriented x3 HENMT Head: normal to inspection Ears: hearing grossly normal bilaterally, external ears normal, TM's normal bilaterally and EAC's normal Nose: external nose normal, nares normal, septum normal and no nasal discharge Face and sinus: normal facial exam, sinuses nontender (Though bilateral maxillary fullness to palpation) and face symmetric Mouth: oral mucosae normal, lip normal, tongue normal and oropharynx normal Throat: posterior oropharynx normal, tonsils normal, uvula midline and postnasal drainage (Purulent) Eyes General: appearance normal, both eyes and all related structures (except OD conjunctival injection with trace exudate; negative limbus OU) Neck Neck: normal visual inspection, full ROM, no meningeal signs, supple and lymphadenopathy (Bilateral anterior cervical lymph node swelling/tender to palpation) Neck mass: No Thyroid: thyroid normal Chest Chest palpation inspection: normal inspection of the chest Resp Effort Inspection: normal respiratory effort and able to speak in complete sentences with a moist nonproductive cough Auscultation: Bilateral: Clear to Auscultation with scant inspiratory and expiratory wheezing throughout Cardio Palpation: normal PMI Rate: regular rate Rhythm: regular rhythm Heart Sounds: S1 normal, S2 normal, n (more content not included)... Normal [facility] Dexa Bone Density Studyon Dexa Bone Density Study [facility] Imaging Services [address] [place], [place] [id number] Dexa Bone Density Study MR#: [id number] Acct: [id number] Name: ROBERT REY Rep #: [id number] : 1950 F 73 From: Anish north MD PCP: Dr. Lizzeth Resendez MD Status: REG CLI Study: Dexa Bone Density Study Date of Exam: 06/01/24 Exam# [id number] Ordering Dr: Latesha Preston TRUST VAULT CLERK TRUST VAULT CLERK -C [id number] STUDY: DUAL ENERGY X-RAY ABSORPTIOMETRY / DXA REASON FOR EXAM: Female, 73 years old. Screening for osteoporosis TECHNIQUE: Bone Mineral Density (BMD) measurements of lumbar spine and bilateral hips were obtained. COMPARISON: Comparison is made with prior study to April 08, 2022. FINDINGS: Lumbar Spine (L1-L4): g/cm2 (1.221) / T-score (1.6) / Z-score (4.0) Findings are suggestive of normal bone density with a low fracture risk. Left Femur Total: g/cm2 (0.800) / T-score (-1.2) / Z-score (0.6) Left Femoral Neck: g/cm2 (0.655) / T-score (-1.7) / Z-score (0.3) Right Femur Total: g/cm2 (0.833) / T-score (-0.9) / Z-score (0.9) Right Femoral Neck: g/cm2 (0.732) / T-score (-1.1) / Z-score (1.0) The T-Scores on the most recent prior examination were: Lumbar Spine (L1-L4): There has been worsening of bone density since the previous examination. Left Femur Total: which represents an improvement of 0.8%. Right Femur Total: which represents a worsening of 3.1%. BD/Dexa Bone Density Study IMPRESSION: The patient is considered osteopenic as outlined below according to World Chavez Organization (WHO) criteria with a moderate fracture risk. There has been worsening of bone density since the previous examination. Reference Information: The T-score is the number of standard deviations above or below the standard which is normal for young adults at their peak bone mineral density. The World Health Organization (WHO) interprets the T-scores as follows: Above -1 Normal bone density Between -1 and -2.5 Osteopenia Equal to / or below -2.5 Osteoporosis As a practical clinical guideline, osteopenia may be graded as follows: Mild -1 through -1.5 Moderate -1.6 through -2.0 Severe -2.1 through -2.4 The Z-score is the number of standard deviations above or below age-matched controls. A Z-score of less than -1.5 would be considered abnormal. References: 1. NIH Osteoporosis and Related Bone Diseases www osteo.org 2. International Society for Clinical Densitometry www iscd.org 3. National Osteoporosis Foundation www nof.org Electronically Signed: Anish Strickland MD at 9:49 EDT , CC: FAUSTINA Preston; Dr. Lizzeth Resendez MD Accounting Supervisor: Signed Normal [facility] Student Services Director Office Visit Reporton 04-10-2024 Student Services Director Office Visit Report [address], [address] [place] [address] OFFICE VISIT Date of Service: 04/10/24 MR#: [id number] Acct: [id number] Name: ROBERT REY Rep #: [id number] : 1950 Provider: FAUSTINA barba Age/Sex: 73/F Location: [facility] Status: Signed Intake Vital Signs 04/06/23 09:23 04/10/24 09:05 04/10/24 09:10 Height 5 ft 6 in 5 ft 6 in 5 ft 6 in Weight: 173 lb 2 oz BMI 27.9 BP 122/84 H Intake Visit Reasons: Annual ([employer]) Chief Complaint: Annual Licensed Architect Required: No Is patient in pain?: No Allergies No Known Allergies Allergy (Verified 04/10/24 09:05) Medications ???Medication ???Instructions ???Recorded ???Confirmed ???Type albuterol sulfate 90 mcg/actuation 2 puff inhalation Q4H PRN ##1 02/03/15 04/10/24 Rx aerosol inhaler calcium carbonate (Calcium 600) 600 mg PO BID 08/22/18 04/10/24 History cholecalciferol (vitamin D3) 50 2,000 unit PO DAILY 08/22/18 04/10/24 History mcg (2,000 unit) capsule multivitamin 1 tab PO DAILY 03/12/20 04/10/24 History zinc sulfate 66 mg tablet (Zinc-15) 66 mg PO DAILY 04/05/22 04/10/24 History escitalopram oxalate 20 mg tablet 20 mg PO DAILY #90 tabs 04/10/24 04/10/24 Rx (Lexapro) Is last menstrual period known: No Post menopausal: Yes Patient : No : No PFSH Surgical History H/O tubal ligation Family History Mother Renal cancer Acute leukemia Father Diabetes Social History Smoking Status: Never smoker alcohol intake: current details: occasionally substance use type: does not use caffeine: Yes frequency: 1-2 times per week seatbelt use: always do you feel safe at home: Yes additional social history: History 3 Elective abortions Hx Para 3 Spontaneous abortions Hx # Term Pregnancies 3 Ectopic pregnancies Hx # Pregnancies Multiple births # of living children 3 HPI Encounter for routine gynecological examination Details: ROBERT REY is a 73 year old who presents for annual exam. Denies concerns. States feels very well with use of lexapro and wishes to continue Last PAP: NA History of abnormal PAP: no Last mammogram: 12/2023 History of abnormal mammogram: no Colon cancer screenin Other preventative health care screenings: Roney Female Reproductive History Questions: metorrhagia: No and sexually active: No Menopausal Treatment: No HRT, No Vaginal Estrogen, No Osphena, No OTC treatments and No prescription non-hormonal treatment ROS Const Constitutional: Denies fatigue, weight gain or weight loss Cardio Card: Denies chest pain Resp Resp: Denies cough or dyspnea on exertion GI GI: Denies abdominal pain, bloating, change in stool character, constipation or vomiting : Reports as per HPI; Denies difficulty voiding, pelvic pain, urinary frequency, urinary incontinence, urinary urgency, vaginal discharge or vaginal pruritus Exam Const General: cooperative, healthy appearing, no acute distress and well developed Orientation: alert, oriented to person and oriented to place HENMT Head: normal to inspection Neck Neck: normal visual inspection Thyroid: thyroid normal Lymphatic: no lymphadenopathy noted Chest Breast inspection: normal inspection of the breasts and normal inspection of the axillae Breast palpation: normal palpation of the breasts, normal palpation of the axillae and no axillary lymphadenopathy Resp Effort Inspection: normal respiratory effort GI Palpation: soft, no masses and nontender Rectal Exam: deferred External Female Exam: normal external appearance and normal appearance of the urethra Urethra: normal appearance of the urethra and normal palpation Speculum Exam - Vagina: normal vaginal discharge and vagina atrophic Speculum Exam - Cervix: normal appearance of the cervix Bimanual Exam- Vagina Uterus: normal bimanual exam, uterine size normal, uterine shape normal and non-tender Bimanual Exam- Adnexa, other: normal adnexae, no masses, normal and non-tender Pelvic Support: normal Neuro General: patient alert and patient oriented x3 Psych Affect: normal affect Coding Level of Care Code Pelvic/Breast Diagnoses Encounter for gynecological examination without abnormal finding Z01.419 Gynecological examination findings: abnormal findings ABSENT Depression, unspecified depression type F32.A Depression Type: unspecified Assessment and Plan Assessment and Plan (1) Encounter for routine gynecological examination: Qualifiers: Gynecological examination findings: abnormal findings ABSENT Quali (more content not included)... Normal [facility] CBC W/Diff, Automatedon 07- Absolute Lymph 1.75 X10 3/uL Normal 0.83-4.51 [facility] Comment on above: Performed By: #### L 100.0100, L500.4050, L500.4100, L501.9520 #### [facility] [address] [place], [address] Absolute Neut 1.8 X10 3/uL Low 2.0-7.7 [facility] Comment on above: Performed By: #### L 100.0100, L500.4050, L500.4100, L501.9520 #### [facility] [address] [place], [address] Basophils/100 WBC (Bld) 0.7 % Normal 0-1 [facility] Comment on above: Performed By: #### L 100.0100, L500.4050, L500.4100, L501.9520 #### [facility] [address] [place], [address] Eosinophils/100 WBC (Bld) 5.4 % High 0-5 [facility] Comment on above: Performed By: #### L 100.0100, L500.4050, L500.4100, L501.9520 #### [facility] [address] [place], [address] Erythrocyte distribution width (RBC) [Ratio] 12.5 % Normal 11.6-14.6 [facility] Comment on above: Performed By: #### L 100.0100, L500.4050, L500.4100, L501.9520 #### [facility] [address] [place], [address] Hematocrit (Bld) [Volume fraction] 40.3 % Normal 37-47 [facility] Comment on above: Performed By: #### L 100.0100, L500.4050, L500.4100, L501.9520 #### [facility] [address] [place], [address] Hemoglobin (Bld) [Mass/Vol] 13.7 g/dL Normal 12.0-15.0 [facility] Comment on above: Performed By: #### L 100.0100, L500.4050, L500.4100, L501.9520 #### [facility] [address] [place], [address] IG% 0.000 Normal 0.0-0.9 [facility] Comment on above: Result Comment: IG% - Immature Granulocytes (promyelocytes, myelocytes and metamyelocytes) > 1% indicates that a LEFT SHIFT is Present. Performed By: #### L 100.0100, L500.4050, L500.4100, L501.9520 #### [facility] [address] [place], [address] Lymphocytes/100 WBC (Bld) 43.3 % High 19-41 [facility] Comment on above: Performed By: #### L 100.0100, L500.4050, L500.4100, L501.9520 #### [facility] [address] [place], [address] MCH (RBC) [Entitic mass] 31.2 pg Normal 27.0-32.0 [facility] Comment on above: Performed By: #### L 100.0100, L500.4050, L500.4100, L501.9520 #### [facility] [address] [place], [address] MCHC (RBC) [Mass/Vol] 34.0 g/dL Normal 32-36 [facility] Comment on above: Performed By: #### L 100.0100, L500.4050, L500.4100, L501.9520 #### [facility] [address] [place], [address] MCV (RBC) [Entitic vol] 91.8 fL Normal 81-99 [facility] Comment on above: Performed By: #### L 100.0100, L500.4050, L500.4100, L501.9520 #### [facility] [address] [place], [address] Monocytes/100 WBC (Bld) 6.7 % Normal 0-10 [facility] Comment on above: Performed By: #### L 100.0100, L500.4050, L500.4100, L501.9520 #### [facility] [address] [place], [address] Neutrophils/100 WBC (Bld) 43.9 % Low 47-70 [facility] Comment on above: Performed By: #### L 100.0100, L500.4050, L500.4100, [id number] #### [facility] [address] [place], [address] Nucleated RBC (Bld) [#/Vol] 0 10*3/uL Normal 0-5 [facility] Comment on above: Performed By: #### L 100.0100, L500.4050, L500.4100, L501.9520 #### [facility] [address] [place], [address] Platelet mean volume (Bld) [Entitic vol] 9.7 fL Normal 6.2-12.0 [facility] Comment on above: Performed By: #### L 100.0100, L500.4050, L500.4100, L501.9520 #### [facility] [address] [place], [address] Platelets (Bld) [#/Vol] 208 10*3/uL Normal 150-450 [facility] Comment on above: Performed By: #### L 100.0100, L500.4050, L500.4100, L501.9520 #### [facility] [address] [place], [address] RBC (Bld) [#/Vol] 4.39 10*6/uL Normal 4.2-5.4 [facility] Comment on above: Performed By: #### L 100.0100, L500.4050, L500.4100, [id number] #### [facility] [address] [place], [address] RDW SD 42.1 fl Normal 35.1-43.9 [facility] Comment on above: Performed By: #### L 100.0100, L500.4050, L500.4100, [id number] #### [facility] [address] [place], [address] WBC (Bld) [#/Vol] 4.0 10*3/uL Low 4.4-11.0 [facility] Comment on above: Performed By: #### L 100.0100, L500.4050, L500.4100, L501.9520 #### [facility] [address] [place], [address] Comprehensive Metabolic [facility] 02-22-2024 Albumin [Mass/Vol] 3.7 g/dL Normal 3.2-5.0 [facility] Comment on above: Performed By: #### L 100.0100, L500.4050, L500.4100, L501.9520 #### [facility] [address] [place], [address] Albumin/Globulin [Mass ratio] 1.2 {ratio} Normal 0.9-2.4 [facility] Comment on above: Performed By: #### L 100.0100, L500.4050, L500.4100, L501.9520 #### [facility] [address] [place], [address] ALK P 66 U/L Normal 45-117 [facility] Comment on above: Performed By: #### L 100.0100, L500.4050, L500.4100, [id number] #### [facility] [address] [place], [address] ALT [Catalytic activity/Vol] 28 U/L Normal 13-56 [facility] Comment on above: Performed By: #### L 100.0100, L500.4050, L500.4100, [id number] #### [facility] [address] [place], [address] AST [Catalytic activity/Vol] 24 U/L Normal 15-37 [facility] Comment on above: Performed By: #### L 100.0100, L500.4050, L500.4100, [id number] #### [facility] [address] [place], [address] Bilirubin [Mass/Vol] 0.70 mg/dL Normal 0.20-1.00 [facility] Comment on above: Result Comment: For patients on eltrombopag therapy, use of Dimension Grubbs TBIL is not recommended. Performed By: #### L 100.0100, L500.4050, L500.4100, [id number] #### [facility] [address] [place], [address] BUN/CRE 20.2 RATIO High 10-20 [facility] Comment on above: Performed By: #### L 100.0100, L500.4050, L500.4100, [id number] #### [facility] [address] [place], [address] CA,Total 9.2 mg/dL Normal 8.5-10.1 [facility] Comment on above: Performed By: #### L 100.0100, L500.4050, L500.4100, [id number] #### [facility] [address] [place], [address] Chloride [Moles/Vol] 108 mmol/L High 98-107 [facility] Comment on above: Performed By: #### L 100.0100, L500.4050, L500.4100, [id number] #### [facility] [address] [place], [address] CO2 [Moles/Vol] 27.0 mmol/L Normal 21.0-32.0 [facility] Comment on above: Performed By: #### L 100.0100, L500.4050, L500.4100, [id number] #### [facility] [address] [place], [address] Creatinine [Mass/Vol] 0.79 mg/dL Normal 0.55-1.02 [facility] Comment on above: Result Comment: The validity of the calculated GFR GFRAA in patients over 70 years has not been determined. Clinical correlation is essential. Performed By: #### L 100.0100, L500.4050, L500.4100, [id number] #### [facility] [address] [place], [address] EST GFR - AA 91 mL/min Normal >60 [facility] Comment on above: Result Comment: Afri can [place] GFR Calc Performed By: #### L 100.0100, L500.4050, L500.4100, [id number] #### [facility] [address] [place], [address] GAP 6 Normal 5-15 [facility] Comment on above: Performed By: #### L 100.0100, L500.4050, L500.4100, [id number] #### [facility] [address] [place], [address] GFR/1.73 sq M.predicted among non-blacks MDRD (S/P/Bld) [Vol rate/Area] 75 mL/min/{1.73_m2} Normal >60 [facility] Comment on above: Result Comment: Non- GFR Calc Performed By: #### L 100.0100, L500.4050, L500.4100, [id number] #### [facility] [address] [place], [address] Globulin (S) [Mass/Vol] 3.2 g/dL Normal 2.2-4.2 [facility] Comment on above: Performed By: #### L 100.0100, L500.4050, L500.4100, [id number] #### [facility] [address] [place], [address] Glucose [Mass/Vol] 101 mg/dL Normal 74-106 [facility] Comment on above: Result Comment: Fast ing Glucose result from 100 to 125 mg/dL suggests IMPAIRED HOMEOSTASIS per A.D.A. criteria. Performed By: #### L 100.0100, L500.4050, L500.4100, [id number] #### [facility] [address] [place], [address] Potassium [Moles/Vol] 4.0 mmol/L Normal 3.5-5.1 [facility] Comment on above: Performed By: #### L 100.0100, L500.4050, L500.4100, [id number] #### [facility] [address] [place], [address] Sodium [Moles/Vol] 141 mmol/L Normal 136-145 [facility] Comment on above: Performed By: #### L 100.0100, L500.4050, L500.4100, [id number] #### [facility] [address] [place], [address] T PROT 6.9 g/dL Normal 6.4-8.2 [facility] Comment on above: Performed By: #### L 100.0100, L500.4050, L500.4100, [id number] #### [facility] [address] [place], [address] Urea nitrogen [Mass/Vol] 16 mg/dL Normal 7-18 [facility] Comment on above: Performed By: #### L 100.0100, L500.4050, L500.4100, [id number] #### [facility] [address] [place], [address] Lipid Profileon 02-22-2024 Cholesterol [Mass/Vol] 223 mg/dL High 200 [facility] Comment on above: Result Comment: <200 mg/dL Desirable 200-240 mg/dL Borderline >240 mg/dL High Risk Performed By: #### L 100.0100, L500.4050, L500.4100, [id number] #### [facility] [address] [place], [address] Cholesterol in HDL [Mass/Vol] 79 mg/dL Normal [facility] Comment on above: Result Comment: The drugs N-Acetylcysteine and Metamizole may falsely depress this assay. Reference Range HDL <40 mg/dL Low HDL Cholesterol HDL >or= 60 mg/dL High HDL Cholesterol Performed By: #### L 100.0100, L500.4050, L500.4100, [id number] #### [facility] [address] [place], [address] Cholesterol in LDL [Mass/Vol] 126 mg/dL Normal 0-130 [facility] Comment on above: Performed By: #### L 100.0100, L500.4050, L500.4100, [id number] #### [facility] [address] [place], [address] Cholesterol in VLDL [Mass/Vol] 18 mg/dL Normal 5-40 [facility] Comment on above: Performed By: #### L 100.0100, L500.4050, L500.4100, [id number] #### [facility] [address] [place], [address] Triglyceride [Mass/Vol] 89 mg/dL Normal [facility] Comment on above: Result Comment: The drugs N-Acetylcysteine and Metamizole may falsely depress this assay. Serum Triglycerides Reference Interval Normal <150 mg/dL Borderline high 150 - 199 mg/dL High 200 - 499 mg/dL Very High > or = 500 mg/dL Performed By: #### L 100.0100, L500.4050, L500.4100, [id number] #### [facility] [address] [place], [address] Thyroid Stim Hormone (TSH)on 02-22-2024 TSH 1.83 uIU/mL Normal 0.358-3.74 [facility] Comment on above: Performed By: #### L 100.0100, L500.4050, L500.4100, [id number] #### [facility] [address] [place], [address] Absolute lymphocyte countOrd ered By: Lizzeth Resendez on 02-21-2023 Lymphocytes Auto (Unsp spec) [#/Vol] 1.62 10*3/uL 0.83-4.51 [facility] Basophil percentageOrdered B y: Lizzeth Resendez on 02-21-2023 Basophils/100 WBC (Bld) 0.7 % 0-1 [facility] Bilirubin [Mass/Vol] 0.80 mg/dL 0.20-1.00 [facility] Comment on above: For patients on eltr ombopag therapy, use of Dimension Grubbs TBIL is not recommended. Chloride [Moles/Vol] 106 mmol/L 98-107 [facility] Cholesterol [Mass/Vol] 240 mg/dL <200 [facility] Comment on above: <200 mg/dL Desirable 200-240 mg/dL Borderline >240 mg/dL High Risk Eosinophils/100 WBC (Bld) 5.2 % 0-5 [facility] Glucose [Mass/Vol] 95 mg/dL 74-106 [facility] Neutrophils (Bld) [#/Vol] 2.3 10*3/uL 2.0-7.7 [facility] Neutrophils/100 WBC (Bld) 51.8 % 47-70 [facility] Potassium [Moles/Vol] 3.9 mmol/L 3.5-5.1 [facility] Protein [Mass/Vol] 7.5 g/dL 6.4-8.2 [facility] Sodium [Moles/Vol] 138 mmol/L 136-145 [facility] Triglyceride [Mass/Vol] 84 mg/dL <199 [facility] Comment on above: The drugs N-Acetylcy steine and Metamizole may falsely depress this assay.Serum Triglycerides Reference Interval Normal <150 mg/dL Borderline high 150 - 199 mg/dL High 200 - 499 mg/dL Very High > or = 500 mg/dL WBC (Bld) [#/Vol] 4.4 10*3/uL 4.4-11.0 [facility] Blood erythrocytes count (nu mber/volume)Ordered By: Lizzeth Resendez on 02-21-2023 RBC (Bld) [#/Vol] 4.46 10*6/uL 4.2-5.4 [facility] Blood hemoglobin measurement (mass/volume)Ordered By: Lizzeth Resendez on 02-21-2023 Hemoglobin (Bld) [Mass/Vol] 14.3 g/dL 12.0-15.0 [facility] Blood lymphocytes/100 leukoc ytesOrdered By: Lizzeth Resendez on 02-21-2023 Lymphocytes/100 WBC (Bld) 36.7 % 19-41 [facility] Blood monocytes/100 leukocyt esOrdered By: Lizzeth Resendez on 02-21-2023 Monocytes/100 WBC (Bld) 5.4 % 0-10 [facility] Blood platelet mean volumeOr dered By: Lizzeth Resendez on 02-21-2023 Platelet mean volume (Bld) [Entitic vol] 10.1 fL 6.2-12.0 [facility] Determination of erythrocyte mean corpuscular volume (MCV)Ordered By: Lizzeth Resendez on 02-21-2023 MCV (RBC) [Entitic vol] 93.9 fL 81-99 [facility] Hematocrit Auto (Bld) [Volum e fraction]Ordered By: Lizzeth Mal on 02-21-2023 Hematocrit (Bld) [Volume fraction] 41.9 % 37-47 [facility] - Chemistry and C hemistry - challengeOrdered By: [facility] ALP [Catalytic activity/Vol] 65 U/L 45-117 [facility] ALT [Catalytic activity/Vol] 24 U/L 13-56 [facility] CO2 [Moles/Vol] 25.0 mmol/L 21.0-32.0 [facility] Globulin (S) [Mass/Vol] 3.4 g/dL 2.2-4.2 [facility] Urea nitrogen/Creatinine [Mass ratio] 17.7 mg/mg 10-20 [facility] - Hematology and Cell countsOrdered By: [place] Mal on 02-21-2023 Erythrocyte distribution width (RBC) [Entitic vol] 42.5 fL 35.1-43.9 [facility] Erythrocyte distribution width (RBC) [Ratio] 12.1 % 11.6-14.6 [facility] Immature granulocytes/100 WBC (Bld) 0.200 % 0.0-0.9 [facility] Comment on above: IG% - Immature Granu locytes (promyelocytes, myelocytes and metamyelocytes) > 1% indicates that a LEFT SHIFT is Present. MCH (RBC) [Entitic mass] 32.1 pg 27.0-32.0 [facility] Nucleated RBC/100 WBC (Bld) [Ratio] 0 % 0-5 [facility] MCHC Auto (RBC) [Mass/Vol]Or dered By: Lizzeth Resendez on 02-21-2023 MCHC (RBC) [Mass/Vol] 34.1 g/dL 32-36 [facility] No Panel InformationOrdered By: Lizzeth Resendez on 02-21-2023 Estimated GFR (MDRD) Amer 92 mL/min >60 [facility] Comment on above: GFR Calc Estimated GFR (MDRD) Non-Af Amer 76 mL/min >60 [facility] Comment on above: Non- GFR Calc Thyroid Stimulating Hormone (TSH) 1.98 uIU/mL 0.358-3.74 [facility] Platelets bldOrdered By: Huang Resendez on 02-21-2023 Platelets (Bld) [#/Vol] 205 10*3/uL 150-450 [facility] Serum or plasma albumin pradeep urement (mass/volume)Ordered By: Lizzeth Resendez on 02-21-2023 Albumin [Mass/Vol] 4.1 g/dL 3.2-5.0 [facility] Serum or plasma albumin/glob ulin mass ratioOrdered By: Lizzeth Resendez on 02-21-2023 Albumin/Globulin [Mass ratio] 1.2 {ratio} 0.9-2.4 [facility] Serum or plasma calcium pradeep urement (mass/volume)Ordered By: Lizzeth Resendez on 02-21-2023 Calcium [Mass/Vol] 9.5 mg/dL 8.5-10.1 [facility] Serum or plasma cholesterol in HDL measurement (mass/volume)Ordered By: Lizzeth Resendez on 02-21-2023 Cholesterol in HDL [Mass/Vol] 81 mg/dL >40 [facility] Comment on above: The drugs N-Acetylcy steine and Metamizole may falsely depress this assay. Reference Range HDL <40 mg/dL Low HDL Cholesterol HDL >or= 60 mg/dL High HDL Cholesterol Serum or plasma cholesterol in VLDL measurement (mass/volume)Ordered By: Lizzeth Resendez on 02-21-2023 Cholesterol in VLDL [Mass/Vol] 17 mg/dL 5-40 [facility] Serum or plasma creatinine m easurement (mass/volume)Ordered By: Lizzeth Resendez on 02-21-2023 Creatinine [Mass/Vol] 0.79 mg/dL 0.55-1.02 [facility] Comment on above: The validity of the calculated GFR & GFRAA in patients over 70 years has not been determined. Clinical correlation is essential. Serum or plasma low density lipoprotein (LDL) cholesterol measurement (mass/volume)Ordered By: Lizzeth Resendez on 02-21-2023 Cholesterol in LDL [Mass/Vol] 142 mg/dL 0-130 [facility] Serum or plasma urea nitroge n measurement (mass/volume)Ordered By: Lizzethnieves Resendez on 02-21-2023 Urea nitrogen [Mass/Vol] 14 mg/dL 7-18 [facility] Thin prep Papanicolaou smear with manual screeningOrdered By: [facility] on 02-[facility]23 Thin prep Papanicolaou smear with manual screening 25 U/L 15-37 [facility] Thin prep Papanicolaou smear with manual screening 7 5-15 [facility] Absolute lymphocyte counton 02-19-2022 Lymphocytes Auto (Unsp spec) [#/Vol] 1.38 10*3/uL 0.83-4.51 [facility] Work Phone: Basophil percentageon 2021 Basophils/100 WBC (Bld) 0.5 % 0-1 [facility] Work Phone: Bilirubin [Mass/Vol] 0.70 mg/dL 0.20-1.00 [facility] Work Phone: Comment on above: For patients on eltr ombopag therapy, use of Dimension Grubbs TBIL is not recommended. Chloride [Moles/Vol] 108 mmol/L 98-107 [facility] Work Phone: Cholesterol [Mass/Vol] 198 mg/dL <200 [facility] Work Phone: Comment on above: <200 mg/dL Desirable 200-240 mg/dL Borderline >240 mg/dL High Risk Eosinophils/100 WBC (Bld) 2.7 % 0-5 [facility] Work Phone: Glucose [Mass/Vol] 90 mg/dL 74-106 [facility] Work Phone: Neutrophils (Bld) [#/Vol] 2.2 10*3/uL 2.0-7.7 [facility] Work Phone: Neutrophils/100 WBC (Bld) 55.2 % 47-70 [facility] Work Phone: Potassium [Moles/Vol] 4.0 mmol/L 3.5-5.1 [facility] Work Phone: Protein [Mass/Vol] 6.8 g/dL 6.4-8.2 [facility] Work Phone: Sodium [Moles/Vol] 142 mmol/L 136-145 [facility] Work Phone: Triglyceride [Mass/Vol] 64 mg/dL <199 [facility] Work Phone: Comment on above: The drugs N-Acetylcy steine and Metamizole may falsely depress this assay.Serum Triglycerides Reference Interval Normal <150 mg/dL Borderline high 150 - 199 mg/dL High 200 - 499 mg/dL Very High > or = 500 mg/dL WBC (Bld) [#/Vol] 4.0 10*3/uL 4.4-11.0 [facility] Work Phone: Blood erythrocytes count (nu mber/volume)on 02-19-2022 RBC (Bld) [#/Vol] 4.05 10*6/uL 4.2-5.4 [facility] Work Phone: Blood hemoglobin measurement (mass/volume)on 02-19-2022 Hemoglobin (Bld) [Mass/Vol] 12.8 g/dL 12.0-15.0 [facility] Work Phone: Blood lymphocytes/100 leukoc yteson 02-19-2022 Lymphocytes/100 WBC (Bld) 34.2 % 19-41 [facility] Work Phone: Blood monocytes/100 leukocyt eson 02-19-2022 Monocytes/100 WBC (Bld) 7.2 % 0-10 [facility] Work Phone: Blood platelet mean volumeon 02-19-2022 Platelet mean volume (Bld) [Entitic vol] 9.4 fL 6.2-12.0 [facility] Work Phone: Determination of erythrocyte mean corpuscular volume (MCV)on 02-19-2022 MCV (RBC) [Entitic vol] 93.3 fL 81-99 [facility] Work Phone: Hematocrit Auto (Bld) [Volum e fraction]on 02-19-2022 Hematocrit (Bld) [Volume fraction] 37.8 % 37-47 [facility] Work Phone: Laboratory - Chemistry and C hemistry - challengeon 02-19-2022 ALP [Catalytic activity/Vol] 63 U/L 45-117 [facility] Work Phone: ALT [Catalytic activity/Vol] 28 U/L 13-56 [facility] Work Phone: CO2 [Moles/Vol] 29.0 mmol/L 21.0-32.0 [facility] Work Phone: Globulin (S) [Mass/Vol] 3.0 g/dL 2.2-4.2 [facility] Work Phone: Urea nitrogen/Creatinine [Mass ratio] 16.5 mg/mg 10-20 [facility] Work Phone: Laboratory - Hematology and Cell countson 02-19-2022 Erythrocyte distribution width (RBC) [Entitic vol] 41.7 fL 35.1-43.9 [facility] Work Phone: Erythrocyte distribution width (RBC) [Ratio] 12.1 % 11.6-14.6 [facility] Work Phone: Immature granulocytes/100 WBC (Bld) 0.200 % 0.0-0.9 [facility] Work Phone: Comment on above: IG% - Immature Granu locytes (promyelocytes, myelocytes and metamyelocytes) > 1% indicates that a LEFT SHIFT is Present. MCH (RBC) [Entitic mass] 31.6 pg 27.0-32.0 [facility] Work Phone: Nucleated RBC/100 WBC (Bld) [Ratio] 0 % 0-5 [facility] Work Phone: MCHC Auto (RBC) [Mass/Vol]on 02-19-2022 MCHC (RBC) [Mass/Vol] 33.9 g/dL 32-36 [facility] Work Phone: No Panel Informationon 02-19 Estimated GFR (MDRD) Amer 101 mL/min >60 [facility] Work Phone: Comment on above: GFR Calc Estimated GFR (MDRD) Non-Af Amer 83 mL/min >60 [facility] Work Phone: Comment on above: Non- GFR Calc Thyroid Stimulating Hormone (TSH) 1.26 uIU/mL 0.358-3.74 [facility] Work Phone: Platelets bldon 02-19-2022 Platelets (Bld) [#/Vol] 265 10*3/uL 150-450 [facility] Work Phone: Serum or plasma albumin pradeep urement (mass/volume)on 02-19-2022 Albumin [Mass/Vol] 3.8 g/dL 3.2-5.0 [facility] Work Phone: Serum or plasma albumin/glob ulin mass ratioon 02-19-2022 Albumin/Globulin [Mass ratio] 1.3 {ratio} 0.9-2.4 [facility] Work Phone: Serum or plasma calcium pradeep urement (mass/volume)on 02-19-2022 Calcium [Mass/Vol] 9.0 mg/dL 8.5-10.1 [facility] Work Phone: Serum or plasma cholesterol in HDL measurement (mass/volume)on 02-19-2022 Cholesterol in HDL [Mass/Vol] 67 mg/dL >40 [facility] Work Phone: Comment on above: The drugs N-Acetylcy steine and Metamizole may falsely depress this assay. Reference Range HDL <40 mg/dL Low HDL Cholesterol HDL >or= 60 mg/dL High HDL Cholesterol Serum or plasma cholesterol in VLDL measurement (mass/volume)on 02-19-2022 Cholesterol in VLDL [Mass/Vol] 13 mg/dL 5-40 [facility] Work Phone: Serum or plasma creatinine m easurement (mass/volume)on 02-19-2022 Creatinine [Mass/Vol] 0.73 mg/dL 0.55-1.02 [facility] Work Phone: Comment on above: The validity of the calculated GFR & GFRAA in patients over 70 years has not been determined. Clinical correlation is essential. Serum or plasma low density lipoprotein (LDL) cholesterol measurement (mass/volume)on 02-19-2022 Cholesterol in LDL [Mass/Vol] 118 mg/dL 0-130 [facility] Work Phone: Serum or plasma urea nitroge n measurement (mass/volume)on 02-19-2022 Urea nitrogen [Mass/Vol] 12 mg/dL 7-18 [facility] Work Phone: Thin prep Papanicolaou smear with manual screeningon 02-19-2022 Thin prep Papanicolaou smear with manual screening 26 U/L 15-37 [facility] Work Phone: Thin prep Papanicolaou smear with manual screening 5 5-15 [facility] Work Phone: Lab Report: CBC W/Diff, Auto matedon 06-08-2017 Absolute Neut 1.9 X10 3/UL Low 2.0-7.7 [facility] Basophils/100 WBC Auto (Bld) 0.4 % Invalid Interpretation Code 0-1 [facility] Eosinophils/100 leukocytes 5.2 % High 0-5 [facility] Erythrocyte distribution width Auto Ratio (RBC) 12.7 % Invalid Interpretation Code 11.6-14.6 [facility] Erythrocytes (RBC) 4.46 10*6/uL Invalid Interpretation Code 4.2-5.4 [facility] Hematocrit (HCT) 40.6 % Invalid Interpretation Code 37-47 [facility] Hemoglobin mass conc (Bld) 14.2 g/dL Invalid Interpretation Code 12.0-15.0 [facility] Immature granulocytes/100 WBC (Bld) 0.000 % Invalid Interpretation Code 0.0-0.9 [facility] Lymphocytes 2.31 X10 3/UL Invalid Interpretation Code 0.83-4.51 [facility] Lymphocytes/100 leukocytes 48.4 % High 19-41 [facility] MCH 31.8 pg Invalid Interpretation Code 27.0-32.0 [facility] MCHC mass conc (RBC) 35.0 G/GL Invalid Interpretation Code 32-36 [facility] MCV 91.0 fL Invalid Interpretation Code 81-99 [facility] Monocytes/100 leukocytes 5.7 % Invalid Interpretation Code 0-10 [facility] Neutrophils/100 WBC Auto (Bld) 40.3 % Low 47-70 [facility] Platelets 223 10*3/mm3 Invalid Interpretation Code 150-450 [facility] PMV by Martin 10.2 fL Invalid Interpretation Code 6.2-12.0 [facility] RDW SD 41.8 fL Invalid Interpretation Code 35.1-43.9 [facility] WBC (Leukocytes) 4.8 10*3/uL Invalid Interpretation Code 4.4-11.0 [facility] Lab Report: Glucoseon 2016 Glucose mass conc 92 mg/dL Invalid Interpretation Code 70-110 [facility] Report: Lipid Profileon 06-08-2017 Cholesterol 252 mg/dL High 200 [facility] HDL Cholesterol 73 mg/dL Invalid Interpretation Code [facility] LDL Cholesterol 164 mg/dL High 0-130 [facility] Triglyceride 77 mg/dL Invalid Interpretation Code [facility] very low density lipoproteins 15 mg/dL Invalid Interpretation Code 5-40 [facility] Lab Report: Thyroid Stim Hor noris (TSH)on 06-08-2017 Thyroid stimulating hormone (TSH) 1.62 u[iU]/mL Invalid Interpretation Code 0.358-3.74 [facility] Vital Signs Date Time Vital Sign Value Performing Clinician [facility] 01-01-2025 11:32-0400 Body height 167.[address] Lizzeth Resendez MD Work Phone: [facility] 01-01-2025 11:32-0400 Body mass index (BMI) [Ratio] 27.9 kg/m2 Dr. Lizzeth Resendez MD Work Phone: [facility] 01-01-2025 11:32-0400 Body temperature 98.4 [degF] Dr. Lizzeth Resendez MD Work Phone: [facility] 01-01-2025 11:32-0400 Body weight 78.[address] Lizzeth Resendez MD Work Phone: [facility] 01-01-2025 11:32-0400 Diastolic blood pressure 80 mm[Hg] Dr. Lizzeth Resendez MD Work Phone: [facility] 01-01-2025 11:32-0400 Heart rate 71 /min Dr. Lizzeth Resendez MD Work Phone: [facility] 01-01-2025 11:32-0400 Respiratory rate 15 /min Dr. Lizzeth Resendez MD Work Phone: [facility] 01-01-2025 11:32-0400 SaO2% (BldA) [Mass fraction] 96 % Dr. Lizzeth Resendez MD Work Phone: [facility] 01-01-2025 11:32-0400 Systolic blood pressure 132 mm[Hg] Dr. Lizzeth Resendez MD Work Phone: [facility] 04-05-2022 13:05-0400 Body height 167.[address] Lizzeth Resendez Work Phone: [facility] Work Phone: 04-05-2022 13:03-0400 Body mass index (BMI) [Ratio] 28 kg/m2 Dr. Lizzeth Resendez Work Phone: [facility] Work Phone: 04-05-2022 13:03-0400 Body weight 78.[address] Lizzeth Resendez Work Phone: [facility] Work Phone: 04-05-2022 13:03-0400 Diastolic blood pressure 80 mm[Hg] Dr. Lizzeth Resendez Work Phone: [facility] Work Phone: 04-05-2022 13:03-0400 Systolic blood pressure 128 mm[Hg] Dr. Lizzeth Resendez Work Phone: [facility] Work Phone: Encounters Encounter Date Encounter Type Care Provider Facility Start: 01-10-2025 ambulatory Lizzeth Mal Facility: [facility] Start: 01-01-2025 End: 01-01-2025 Patient encounter procedure Perfecto Valerio [facility] Work Phone: Start: 01-01-2025 End: 01-01-[address] Lizzeth Resendez MD Work Phone: [facility] Work Phone: Start: 06-01-2024 End: 06-01-2024 ambulatory Latesha Mohan [facility] CLERK Facility:[facility] Start: 04-10-2024 Encounter for gynecological examination (general) (routine) without abnormal findings Latesha Preston TRUST VAULT CLERK [facility] Start: 04-10-2024 End: 04-10-[facility] Start: 03-12-2024 Encounter for genera l adult medical examination without abnormal findings Lizzeth Resendez [facility] Start: 02-22-2024 End: 02-22-20[facility] Start: 02-21-2023 End: 02-21-2023 ambulatory [facility] Work Phone: Start: 02-21-2023 End: 02-21-2023 Patient encounter procedure [facility] Work Phone: Start: 12-22-2022 End: 12-22-2022 Patient encounter procedure [facility] Work Phone: Start: 04-08-2022 End: 04-08-[address] Lizzeth Resendez Work Phone: [facility] Work Phone: Start: 04-08-2022 End: 04-08-[address] Lizzeth Resendez Work Phone: [facility] Start: 04-05-2022 End: 04-05-[address] Lizzeth Resendez Work Phone: [facility] Start: 02-19-2022 End: 02-19-2022 Patient encounter procedure [facility] Start: 12-21-2021 End: 12-21-2021 Patient encounter procedure [facility] Start: 01-25-2017 End: 01-26-2017 Ambulatory LATESHA (AXEL) MOHAN [facility] Procedures Date Procedure Procedure Detail Performing Clinician Start: 12-22-2022 Screening mammography Start: 04-08-2022 Dual energy X-ray absorptiometry Dr. Lizzeth Resendez Work Phone: Start: 12-21-2021 Screening mammography Start: 05-31-2017 Screening mammography Mammogram yearly screening Latesha Preston TR[employer] VAULT CLERK Start: 04-13-2017 End: 06-08-2017 *CBC with Differential Latesha Preston TRUST VAULT CLERK Work Phone: Start: 04-13-2017 End: 06-08-2017 Glucose [Mass/volume] in Serum or Plasma Latesha Preston TRUST VAULT CLERK Work Phone: Start: 04-13-2017 End: 06-08-2017 Lipid 1996 panel - Serum or Plasma Latesha Preston TRUST VAULT CLERK Work Phone: Start: 04-13-2017 Specialized medical examination Health screening Latesha Preston TR[employer] VAULT CLERK Start: 04-13-2017 End: 06-08-2017 Thyrotropin [Units/volume] in Serum or Plasma Latesha Preston TRUST VAULT CLERK Work Phone: Plan of Treatment Date Care Activity Detail Author Start: 06-02-2017 End: 06-02-2017 Dxa bone density study 1/> sites axial skel Dual-energy X-ray absorptiometry (DXA), bone density study, 1 or more sites; [facility] Work Phone: Start: 05-31-2017 End: 05-31-2017 Mammogram, screening Mammogram, Screening, both breasts [facility] Start: 04-13-2017 End: 06-08-2017 *CBC with Differential *CBC with Differential [facility] Start: 04-13-2017 End: 06-08-2017 Glucose mass conc *Glucose, Fasting [facility] Start: 04-13-2017 End: 06-08-2017 Lipid panel [AGGREGATE] *Lipid Profile [facility] Start: 04-13-2017 End: 06-08-2017 Thyroid stimulating hormone (TSH) *TSH [facility] Start: 04-13-2017 End: 04-13-2017 *CBC with Differential *CBC with Differential [facility] Start: 04-13-2017 End: 04-13-2017 Glucose *Glucose, Fasting [facility] Start: 04-13-2017 End: 04-13-2017 Lipid panel [AGGREGATE] *Lipid Profile [facility] Start: 04-13-2017 End: 04-13-2017 Thyroid stimulating hormone (TSH) *TSH [facility] Immunizations Immunization Date Immunization Notes Care Provider Fa cility 09-10-2020 Covid (Moderna) [facility] 08-13-2020 Covid (Moderna) [facility] 05-26-2020 influenza, injectabl e, quadrivalent, preservative free Dr. Lizzeth Resendez MD Work Phone: [facility] 05-26-2020 influenza, seasonal, injectable [facility] 07-02-2019 influenza, injectabl e, quadrivalent, preservative free Dr. Lizzeth Resendez MD Work Phone: [facility] 07-02-2019 influenza, seasonal, injectable [facility] 06-07-2018 influenza, injectabl e, quadrivalent, preservative free Dr. Lizzeth Resendez MD Work Phone: [facility] 06-07-2018 influenza, seasonal, injectable [facility] 05-13-2017 influenza, injectabl e, quadrivalent, preservative free Dr. Lizzeth Resendez MD Work Phone: [facility] 05-13-2017 influenza, seasonal, injectable [facility] 06-11-2015 influenza, injectabl e, quadrivalent, preservative free Dr. Lizzeth Resendez MD Work Phone: [facility] 06-11-2015 influenza, seasonal, injectable [facility] 08-16-2013 Influenza virus vaccine [facility] Payers Date Payer Category Payer Self-pay [id number] 2023 Private Health Insurance [id number] 2014 Medicare [id number] Unknown [id number] Unknown [id number] Unknown [id number] Unknown [id number] Unknown [id number] Social History Date Type Detail Facility Start: 03-31-2021 End: 09-14-2022 Tobacco smoking status MOIS Unknown if ever smoked [facility] Start: 1950 Sex Assigned At Female [facility] Start: 04-06-2023 [facility] Evaluation note Note Date & Type Note Facility Evaluation note No assessment information availa ble [facility] Work Phone: Evaluation note Note Date & Type Note Facility Evaluation note Diagnosis Onset Date Encounter for routine gyneco logical examination noneactive [facility] Work Phone: Reason for referral (narrative) Note Date & Type Note Facility Reason for referral (narrative) No reason for referral information available [facility] Work Phone: Summary Purpose Family History No Family History Records Found Relationship Condition Age at Onset Recorded Date/T chato mother Malignant neoplasm of kidney Unknown Acute leukemia Unknown father Diabetes mellitus Unknown Advance Directives No Advanced Directives Records Found Advance Directive Response Recorded Date/ Time Living Will Yes February 03, 2015 10:05pm Power of Clinical Liaison Yes February 03 10:05pm Advance Directive Response Recorded Date/ Time Living Will Yes September 14 10:18am Power of Clinical Liaison Yes September 14, 2022 10:18am Chief Complaint and Reason for Visit Chief Complaint SCREENING Chief Complaint SCREENING Annual ([employer]) [employer] Reason for Visit Encounter for routin e gynecological examination Chief Complaint Admit Date SINUS COMPLAINT January 01, 2025 11:20 am Additional Source Comments INFORMATION SOURCE (unrecogn ized section and content) DATE CREATED AUTHOR 02/01/2018 [facility] DATE CREATED AUTHOR AUTHOR'S ORGANIZ ATION 01/08/2025 [facility] Goals (unrecognized section and content) Goals may be documented in a n alternate sectionGoals may be documented in an alternate sectionGoals may be documented in an alternate sectionGoals may be documented in an alternate sectionGoals may be documented in an alternate section Care Teams (unrecognized sec tion and content) Team Status: Active Member Role Status Dates Dr. Lizzeth Resendez MD Family Provider Active Dr. Lizzeth Resendez MD Primary Care Provider Active Team Status: Inactive Member Role Status Dates Dr. Lizzeth Resendez MD Primary Care Provider Active Latesha Preston TRUST VAULT CLERK, TRUST VAULT CLERK-C Attending Provider, Referring Provider Active Team Status: Inactive Member Role Status Dates Dr. Lizzeth Resendez MD Primary Care Prov ider, Attending Provider, Referring Provider Active Team Status: Active Member Role Status Dates Dr. Lizzeth Resendez MD Primary Care Provider Active Team Status: Inactive Member Role Status Dates Dr. Lizzeth Resendez MD Primary Care Provider Active Start: January 01, 2025 End: January 01, 2025 Dr. Lizzteh Resendez MD Referring Provider Active Start: January 01, 2025 End: January 01, 2025 Perfecto ROBERTS, [place] Attending Provider Active Start: January 01, 2025 End: January 01, 2025 FOR RECORDS PERTAINING TO PATIENTS WHO ARE [...] BE BASED ON THE PRIMARY CLINICAL RECORDS. [facility]. provides no warranty or guarantee of the accuracy or completeness of information in this document.
--- NOTE | 2025-01-10 07:49 | BI_ITS ---
EXAM: SCRN MAMM (CAD)W/YANA BILAT DATE: 01/10/2025 CLINICAL HISTORY: F, Age 74 y/o , SCREENING FOR BREAST CANCER BREAST CANCER RISK ASSESSMENT: Na TECHNIQUE: Bilateral screening digital breast tomosynthesis with 2D and 3D images. Computer aided detection. COMPARISON: Prior exam(s) were compared FINDINGS: TISSUE DENSITY: The breast tissue is composed of scattered area of fibroglandular density. Bilateral Breast Mammographic Findings: No suspicious masses, calcifications or other abnormalities are identified. BI/SCRN MAMM (CAD)W/YANA BILAT IMPRESSION: OVERALL FINAL ASSESSMENT: BIRADS 1 NEGATIVE RECOMMENDATION: Routine annual follow-up in 1 Year A letter with findings and recommendations will be mailed to the patient. Reading Location: [id number]
== END | disposition home or self-care (01) ==
PROVIDERS: PCP Family Medicine; Referring Provider Nurse Practitioner Women's Health; Visit Provider Nurse Practitioner Women's Health
DX: Z12.31 Encounter for screening mammogram for malignant neoplasm of breast (principal)
CPT/HCPCS: 77063; 77067

== ENCOUNTER → 2025-02-26 | Outpatient (CLI) | payer MEDICARE, OTHER, SELFPAY ==
[2025-02-26 10:13] LABS: Hematocrit 39.0 % (37-47); Hemoglobin 13.6 g/dL (12.0-15.0); Immature Granulocytes Count 0.010 X10^3/uL (0.0-0.0); Mean Corp Hgb Conc 34.9 g/dL (32-36); Mean Corpuscular Volume 91.3 fL (81-99); Mean Platelet Vol. 9.5 fl (6.2-12.0); NRBC Flagged by Analyzer 0 % (0-5); Platelet Count 202 K/mm3 (150-450); RBC Distribution Width CV 12.5 % (11.6-14.6); RBC Distribution Width SD 41.6 fl (35.1-43.9); Red Blood Count 4.27 M/mm3 (4.2-5.4); White Blood Count 4.0 K/mm3 (4.4-11.0)
[2025-02-26 10:57] LABS: AST(SGOT) 28 U/L (<=31); Alanine Aminotransfer ALT/SGPT 18 U/L (<=34); Albumin, Serum 4.3 g/dL (3.4-4.8); Alkaline Phosphatase 69 U/L (35-104); Anion Gap 15 (5-15); BUN 11 mg/dL (4-19); BUN/Creat Ratio 14.0 RATIO (10-20); Calcium,Total 9.7 mg/dL (7.6-11.0); Carbon Dioxide 20.9 mmol/L (21.0-32.0); Chloride 104 mmol/L (98-108); Cholesterol 223 mg/dL (<=200); Globulin 2.8 g/dL (2.2-4.2); Glucose 92 mg/dL (70-99); Low Density Lipoprotein Calc. 136 mg/dL; Potassium 4.1 mmol/L (3.3-5.1); Triglycerides 75 mg/dL; Very Low Density Lipoprotein 15 mg/dL (5-40); cholesterol:hdl ratio screen 3.11
== END | disposition home or self-care (01) ==
LOC: MTLAB 08:46
PROVIDERS: PCP Family Medicine; Referring Provider Family Medicine; Visit Provider Family Medicine
DX: Z00.00 Encounter for general adult medical examination without abnormal findings (principal); F32.9 Major depressive disorder, single episode, unspecified; R53.83 Other fatigue; E78.5 Hyperlipidemia, unspecified
CPT/HCPCS: 36415; 80053; 80061; 84443; 85025